=== PATIENT | male | born 1955 | race Caucasian/White ===

== ENCOUNTER 2024-02-26 09:39 | Outpatient (AMB) | payer OTHER, SELFPAY ==
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
[2024-02-26 10:07] VITALS: BP 130/78; PULSE 72; RESP 16; TEMP 36.6; O2SAT 98; BMI 29.1
== END 2024-02-26 11:09 | disposition home or self-care (01) ==
PROVIDERS: PCP Family Medicine; Visit Provider Family Medicine
DX: R35.0 Frequency of micturition (principal); F17.210 Nicotine dependence, cigarettes, uncomplicated; Z12.11 Encounter for screening for malignant neoplasm of colon; Z86.010 Personal history of colon polyps; M79.604 Pain in right leg; R29.898 Other symptoms and signs involving the musculoskeletal system
CPT/HCPCS: 99203

== ENCOUNTER 2024-03-29 08:08 | Outpatient (REF) | payer OTHER, SELFPAY ==
[2024-03-29 11:14] LABS: MANUAL DIFF FLAG NO
[2024-03-29 11:33] LABS: Basophils Absolute Auto 0.1 X10*3/uL (0.0-0.2); Basophils Percent Auto 1.3 % (0-2); Eosinophils Absolute Auto 0.2 X10*3/uL (0.0-0.4); Eosinophils Percent Auto 3.3 % (0-4); Hematocrit 42.3 % (42.0-52.0); Imm Gran Abs Auto 0.02 X10*3/uL (0.00-0.03); Imm Gran Pct Auto 0.3 % (0.0-0.4); Lymphocytes Absolute Auto 2.2 X10*3/uL (1.2-4.9); Lymphocytes Percent Auto 35.1 % (20-40); Mean Corpuscular HGB Conc 33.1 g/dl (31.0-36.0); Mean Corpuscular Hemoglobin 31.7 pg (27.0-33.0); Mean Corpuscular Volume 95.7 fL (80.0-98.0); Monocytes Absolute Auto 0.4 X10*3/uL (0.1-1.2); Neutrophils Absolute Auto 3.4 x10*3/uL (2.0-8.3); Platelet Count 221 X10*3/uL (160-400); Red Blood Count 4.42 X10*6/uL (4.60-5.80); Red Cell Distribution Width 13.1 % (11.0-16.0); White Blood Count 6.4 X10*3/uL (4.8-10.8)
[2024-03-29 12:03] LABS: Alanine Aminotransferase 23 U/L (0-40); Alkaline Phosphatase 63 U/L (39-117); Anion Gap 10 (12-20); Aspartate Amino Transferase 27 U/L (5-37); Bilirubin Total 0.7 mg/dL (0.0-1.0); Blood Urea Nitrogen 14 mg/dL (9-16); Carbon Dioxide 27 mmol/L (22-29); Chloride 108 mmol/L (96-108); Cholesterol 181 mg/dL (<200); Estimated Glomerular Filt Rate > 60; Glucose Fasting 96 mg/dL (60-99); HDL Cholesterol 35 mg/dL (>40); LDL Cholesterol Calculated 111 mg/dL (<100); Potassium 4.3 mmol/L (3.3-5.1); Sodium 141 mmol/L (135-145); Total Protein 6.5 g/dL (6.5-8.0); Triglycerides 178 mg/dL (<150)
[2024-03-29 12:14] LABS: Prostate Specific Antigen Scr 2.25 ng/mL (<0.05-4.0)
[2024-03-29 12:22] LABS: TSH reflex Free T4 0.75 uIU/mL (0.32-4.0)
[2024-03-29 14:24] LABS: Appearance Urine Clear; Color Urine Yellow; Glucose Urine UA Negative (Negative); Leukocyte Esterase Urine Negative (Negative); Nitrite Urine Negative (Negative); Specific Gravity - Urine >= 1.030 (1.005-1.025); Urine Blood Negative (Negative); Urine Ketones Negative (Negative); Urine Protein Trace mg/dL (Neg-Trace)
[2024-03-29 14:57] LABS: Creatinine Urine 192.71 mg/dL; Microalbum/Creatinine Ratio Ur 6.7 ug/mg cr (<30)
== END 2024-03-29 08:09 | disposition home or self-care (01) ==
LOC: HO.WFDLDS 08:08
PROVIDERS: Visit Provider Family Medicine
DX: Z00.00 Encounter for general adult medical examination without abnormal findings (principal); Z12.5 Encounter for screening for malignant neoplasm of prostate; I10 Essential (primary) hypertension
CPT/HCPCS: 36415; 80053; 80061; 81003; 82043; 82570; 84153; 84443; 85025

== ENCOUNTER → 2024-05-23 15:57 | Outpatient (BNVA) | payer OTHER, SELFPAY | PROVIDERS: PCP Family Medicine; Visit Provider Family Medicine | DX: R03.0 Elevated blood-pressure reading, without diagnosis of hypertension (principal); R29.898 Other symptoms and signs involving the musculoskeletal system; R39.14 Feeling of incomplete bladder emptying | CPT/HCPCS: 96127; 99212 ==

== ENCOUNTER → 2024-05-23 15:57 | Outpatient (AMB) | payer OTHER, SELFPAY ==
--- NOTE | 2024-05-23 16:06 | A.OFFPC_ITS ---
Vital Signs 05/23/24 16:35 Height 5 ft 8.11 in Weight 193 lb 4 oz BMI 29.3 BP 142/70 H Blood Pressure Location Rt brachial Position Sitting Respiration 16 Pulse 69 Pulse Source Pulse Oximeter Temp 97.7 F Temp Source Temporal Artery Scan Pulse Oximetry (%) 97 Oxygen Delivery Method Room Air Intake Visit Reasons: 2 months for CPE with follow-up labs Allergies acetaminophen [From Tylenol-Codeine #3] Allergy (Severe, Verified 02/26/24 10:02) Anaphylaxis codeine [From Tylenol-Codeine #3] Allergy (Severe, Verified 02/26/24 10:02) Anaphylaxis Codeine Sulfate Allergy (Unknown, Uncoded 08/22/17 00:00) tongue swelling Medication List - Last Reconciled 05/23/24 by Drew Guzman MD acetaminophen (Tylenol Extra Strength) 1,000 mg PO QID PRN alfuzosin ER 10 mg PO DAILY 30 days ibuprofen 400 mg PO Q8H Tobacco use date assessed: 02/26/24 Dental Screening Dental Screen Date: 02/26/24 HPI 2 months for CPE with follow-up labs HPI Details 69 y/o male presents for a CPE with f/u labs and health maintenance. Labs drawn 04/01/24. Reviewed labs with pt. Triglycerides 178. TC 181. LDL 111. HDL low at 35. PSA 2.25. TSH 0.75. Blood pressure today 142/70, 69p. Notes he had seen Neurology for R fott weakness/intermittent RLE pain. Per note, probable lumbar spinal stenosis, worse on R involving L4-L5 roots on R and bilateral S1 roots. Notes he has an appt. with pain management in May. Notes last colonoscopy around 2017. He has an appt. June with GI. Reports difficulty emptying. [facility] Social History (Updated 02/26/24 @ 09:59 by Deanne Angel [facility]) Housing: House Patient Tobacco Use Status: Current everyday Tobacco user Tobacco use type: Cigarette Cigarette Packs Per Day: 1 Years Smoked: 23 e-Cigarette/Vaping Use: Never Used Second Hand Smoke Exposure: No service: No Current occupational status: disabled Current occupational exposures/hazards: No Cognitive needs: No Hearing needs: No Vision needs: Yes Questionnaire PHQ-9 Over the last 2 weeks, how often have you been bothered by any of the following problems? 1. Little interest or pleasure in doing things: not at all 2. Feeling down, depressed, or hopeless: not at all 3. Trouble falling or staying asleep, or sleeping too much: not at all 4. Feeling tired or having little energy: not at all 5. Poor appetite or overeating: not at all 6. Feeling bad about yourself - or that you are a failure or have let yourself or your family down: not at all 7. Trouble concentrating on things, such as reading the newspaper or watching television: not at all 8. Moving or speaking so slowly that other people could have noticed. Or the opposite - being so fidgety or restless that you have been moving around a lot more than usual: not at all 9. Thoughts that you would be better off or of hurting yourself in some way: not at all Total score: 0 Depression Screening Interpretation: Negative Depression Screening Done: Yes 13551 - PHQ-9 Billing: Yes Source: Developed by Drs. Salbador Haley, Irene Ronquillo, Chavo Rod and colleagues, with an educational riya from [employer]. Thrive Questionnaire Date Thrive assessed: 05/23/24 I am a: Patient What is your living situation today?: I have a steady place to live Within the past 12 months, did the food you bought not last and you didn't have the money to get more?: Never true Within the past 12 months, did you worry whether your food would run out before you got money to buy more?: Never true Do you have trouble paying for medicines?: No Do you have trouble getting transportation to medical appointments?: No Do you have trouble paying your heating and electricity bill?: No Do you have trouble taking care of your child, family member or friend?: No Do you have trouble with day-to-day activities such as bathing, preparing meals, shopping, managing finances, etc.?: No Are you currently unemployed and looking for a job?: No Are you interested in more education?: No Please select the resources that you would like help with: None Currently or been in a relationship where the following occur: No concerns reported THRIVE Score: 0 AUDIT C Alcohol Use Questionnaire (AUDIT-C) 1. How often do you have a drink containing alcohol?: Monthly or less 2. How many drinks containing alcohol do you have on a typical day when you are drinking?: 1 or 2 3. How often do you have six or more drinks on one occasion?: Never Total Score: 1 KINA-7 AMB Questionnaire KINA-7 Date KINA - 7 assessed: 05/23/24 Feeling nervous, anxious, or on edge: 0 = Not at all Not being able to stop or control worryin = Not at all Worrying too much about different things: 0 = Not at all Trouble relaxin = Not at all Being so restless that it is hard to sit still: 0 = Not at all Becoming easily annoyed or irritable: 0 = Not at all Feeling afraid as if something awful might happen: 0 = Not at all Total KINA-7 score (0-4 normal; 5-9 mild; 10-14 moderate; 15-21 severe): 0 Source: Developed by Drs. Salbador Haley, Irene Ronquillo, Chavo Rod and colleagues, with an educational riya from [employer]. KINA-7 Assessment Billing KINA-7 Assessment Tool: KINA-7 Assessment 69238 Review of Systems Const Denies chills, Denies fatigue, Denies fever(s), Denies headache(s) and Denies weakness Eyes Denies change in vision ENT Denies dizziness, Denies headache(s), Denies hearing loss, Denies nasal congestion, Denies sinus pain, Denies sinus pressure and Denies sore throat Card Denies chest pain, Denies lightheadedness, Denies dyspnea and Denies other (palpitations) Resp Denies cough, Denies dyspnea and Denies wheezing GI Denies abdominal pain, Denies melena, Denies hematochezia, Denies change in bowel habits, Denies dyspepsia and Denies nausea Denies hematuria and Denies dysuria Musc Denies abnormal gait, Denies myalgias, Denies arthralgias, Denies numbness and Denies tingling Skin/Breast Denies rash, Denies unusual bruising and Denies wounds Neuro Denies abnormal gait, Denies dizziness, Denies headache(s), Denies memory loss, Denies numbness, Denies Sensory deficit (Neuro), Denies tingling and Denies weakness Psych Denies anxiety, Denies depression and Denies memory loss Endo Denies cold intolerance, Denies fatigue, Denies heat intolerance, Denies polydipsia and Denies polyuria Surendra/Lymph Denies easy bleeding and Denies easy bruising Aller/Immun Denies wheezing Physical exam (Primary Care) Vital Signs: Last Vital Signs Temp 97.7 F 05/23/24 16:35 Pulse 69 05/23/24 16:35 Resp 16 05/23/24 16:35 BP 142/70 H 05/23/24 16:35 Pulse Ox 97 05/23/24 16:35 Oxygen Delivery Method Room Air 05/23/24 16:35 BMI result Body Mass Index 29.3 Tobacco/Smoking Status: Tobacco use Status Tobacco use date assessed 02/26/24 05/23/24 16:07 Patient Tobacco Use Status Current everyday Tobacco 05/23/24 16:07 Tobacco use type Cigarette 05/23/24 16:07 e-Cigarette/Vaping Use Never Used 05/23/24 16:07 PHQ-9: PHQ-9 Score PHQ-9: Total score 0 05/23/24 16:44 Depression Screening Interpretation: Negative Thrive Assessment: Date of Thrive Assessment Date Thrive assessed 05/23/24 05/23/24 16:37 Currently or been in a relationship where the following occur: No concerns reported Const General: no acute distress, well developed, alert and awake Nutritional Appearance: well nourished Orientation/consciousness: patient oriented x3 HENMT Head: Yes normocephalic and Yes atraumatic Ears: hearing grossly normal bilaterally and TM's normal bilaterally General nose exam: Normal external nose present and Normal nares present Mouth: Normal oral and palatal mucosa present and moist mucous membranes Teeth and gingiva: dentition normal Throat: Yes posterior oropharynx normal Eyes General: appearance normal, both eyes and all related structures Pupils: Equal, round and reactive pupils present and Pupil accommodation reflex normal EOM: EOMs intact bilaterally Neck Neck: Yes normal visual inspection, Yes no lymphadenopathy and Yes trachea midline Thyroid: Thyroid normal Carotids: no bruits Lymphatic: no lymphadenopathy noted Chest Chest palpation & inspection: normal inspection of the chest Resp Effort & Inspection: normal respiratory effort Auscultation: clear to auscultation bilaterally Cardio Rate: regular rate Rhythm: regular rhythm Heart sounds: S1 normal heart sound present, S2 normal heart sound present, no gallops, no murmurs and no rubs Bruits: no abdominal aortic bruits and no carotid bruits GI Palpation (GI): No Abdominal aortic bruit present, Soft to palpation, nontender, No hepatosplenomegaly present and No Rebound tenderness present Auscultation: normal bowel sounds General: Yes no CVA tenderness Back/Spine/Pelvis Back: no CVA tenderness Cervical Spine: cervical ROM normal and No Cervical spine tenderness Thoracic/Lumbar Spine: thoraco-lumbar ROM normal, No pain with thoraco-lumbar ROM, No thoracic spinal tenderness and No lumbar spinal tenderness Skin Lesions: no lesions Rashes: no rashes Trauma: no lacerations or abrasions Wounds: no wounds Nails: normal Neuro General: patient oriented x3 Cranial nerves: Yes Equal, round and reactive pupils present Cognition (Neuro): normal cognition Gait exam (Neuro): Normal gait present Motor exam (neuro): 5/5 motor strength present throughout Sensory Exam: No Sensory deficit (Neuro) Deep tendon reflexes (DTR's): Right patellar reflex intensity grade: 2+ and Left patellar reflex intensity grade: 2+ Extrem General: Yes normal to inspection and No edema Psych Appearance: grossly normal Affect: normal affect Attitude: cooperative Thought process: Normal thought process present Coding Level of Care Code Est Pt Level 3 (80893) Diagnoses Adult general medical exam Z00.00 Elevated blood pressure reading R03.0 Right leg weakness R29.898 Screening for colon cancer Z12.11 Feeling of incomplete bladder emptying R39.14 Screening for prostate cancer Z12.5 Additional Codes KINA-7 Assessment Billing - KINA-7 Assessment Tool: KINA-7 Assessment 48660 ([id number]) Assessment & Plan Assessment & Plan (1) Adult general medical exam: Code(s): Z00.00 - Encounter for general adult medical examination without abnormal findings Category: Medical Plan: 69-year-old?male?presents?for?complete?physical?exam (2) Elevated blood pressure reading: Code(s): R03.0 - Elevated blood-pressure reading, without diagnosis of hypertension Category: Medical Plan: Encouraged?a?diet?low?in?salt/sodium Will?follow-up?on?this?at?his?next?visit (3) Right leg weakness: Code(s): R29.898 - Other symptoms and signs involving the musculoskeletal system Category: Medical Plan: ongoing right lower?extremity?weakness?with?lumbar?radiculopathy Mild?unsteady?gait He?has?seen?neurology?and?been?referred?to?pain?management He?has?a?follow-up?with?Neurology (4) Screening for colon cancer: Code(s): Z12.11 - Encounter for screening for malignant neoplasm of colon Category: Medical Plan: History?of?colon?polyp?and?I?referred?him?to?GI He?has?an?appointment?in?June (5) Feeling of incomplete bladder emptying: Code(s): R39.14 - Feeling of incomplete bladder emptying Category: Medical Plan: Patient?is?using?Alfuzosin which?is?helping?with?bladder?emptying?but?still?having?some?difficulty?and?feel s?like?it?is?no?longer?as?effective Referring?him?to?urology (6) Screening for prostate cancer: Code(s): Z12.5 - Encounter for screening for malignant neoplasm of prostate Category: Medical Plan: PSA?2.25?but?patient?notes?some?ongoing?difficulty?with?voiding As?above,?referred?to?Urology Orders: Referrals Urology Referral R39.14 - Feeling of incomplete bladder emptying
[2024-05-23 16:35] VITALS: BP 142/70; PULSE 69; RESP 16; TEMP 36.5; O2SAT 97; BMI 29.3
== END ==
LOC: HO.HMCFM 15:58
PROVIDERS: PCP Family Medicine; Visit Provider Family Medicine
DX: Z00.00 Encounter for general adult medical examination without abnormal findings (principal); R03.0 Elevated blood-pressure reading, without diagnosis of hypertension; R29.898 Other symptoms and signs involving the musculoskeletal system; Z12.11 Encounter for screening for malignant neoplasm of colon; R39.14 Feeling of incomplete bladder emptying; Z12.5 Encounter for screening for malignant neoplasm of prostate

== ENCOUNTER 2024-06-06 09:19 | Outpatient (AMB) | payer OTHER, SELFPAY ==
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
[2024-06-06 09:39] VITALS: BP 140/80; PULSE 74; RESP 16; O2SAT 96; BMI 29.6
== END 2024-06-06 10:09 | disposition home or self-care (01) ==
PROVIDERS: PCP Family Medicine; Visit Provider Anesthesiology
DX: M48.00 Spinal stenosis, site unspecified (principal); M47.816 Spondylosis without myelopathy or radiculopathy, lumbar region; M51.369 Other intervertebral disc degeneration, lumbar region without mention of lumbar back pain or lower extremity pain; M70.61 Trochanteric bursitis, right hip; G89.4 Chronic pain syndrome
CPT/HCPCS: 20610; 99204

== ENCOUNTER → 2024-06-06 09:19 | Outpatient (BNVA) | payer OTHER, SELFPAY | PROVIDERS: PCP Family Medicine; Visit Provider Anesthesiology | DX: M70.61 Trochanteric bursitis, right hip (principal); M48.00 Spinal stenosis, site unspecified; M47.816 Spondylosis without myelopathy or radiculopathy, lumbar region; M51.369 Other intervertebral disc degeneration, lumbar region without mention of lumbar back pain or lower extremity pain; G89.4 Chronic pain syndrome | CPT/HCPCS: 20610; 99202; J0665; J3301 ==

== ENCOUNTER 2024-06-19 10:46 | Outpatient (AMB) | payer OTHER, SELFPAY ==
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
[2024-06-19 10:53] VITALS: BP 148/78; PULSE 98; RESP 16; O2SAT 98; BMI 29.6
== END 2024-06-19 11:24 | disposition home or self-care (01) ==
PROVIDERS: PCP Family Medicine; Visit Provider Anesthesiology
DX: M48.00 Spinal stenosis, site unspecified (principal); M47.816 Spondylosis without myelopathy or radiculopathy, lumbar region; M51.369 Other intervertebral disc degeneration, lumbar region without mention of lumbar back pain or lower extremity pain; M70.61 Trochanteric bursitis, right hip; G89.4 Chronic pain syndrome
CPT/HCPCS: 99213

== ENCOUNTER → 2024-06-19 10:46 | Outpatient (BNVA) | payer OTHER, SELFPAY | PROVIDERS: PCP Family Medicine; Visit Provider Anesthesiology | DX: M48.00 Spinal stenosis, site unspecified (principal); M47.816 Spondylosis without myelopathy or radiculopathy, lumbar region; M51.369 Other intervertebral disc degeneration, lumbar region without mention of lumbar back pain or lower extremity pain; M70.61 Trochanteric bursitis, right hip; G89.4 Chronic pain syndrome | CPT/HCPCS: 99212 ==

== ENCOUNTER 2024-07-12 11:52 | Outpatient (AMB) | payer OTHER, SELFPAY ==
--- NOTE | 2024-07-12 12:05 | MHC.OFFVIS ---
Vital Signs 07/12/24 12:12 Height 5 ft 8.11 in Weight 192 lb 3.889 oz BMI 29.1 BP 130/62 Blood Pressure Location Lt brachial Position Sitting Pulse 88 Intake Visit Reasons: [place] consult. Intake Note: Patient in office as a new patient for colonoscopy consult. CC: Patient denies having any GI symptoms today. Verification Lead Required: No Accompanied by: Self / Same As Patient Allergies acetaminophen [From Tylenol-Codeine #3] Allergy (Severe, Verified 07/12/24 12:15) Anaphylaxis codeine [From Tylenol-Codeine #3] Allergy (Severe, Verified 07/12/24 12:15) Anaphylaxis Codeine Sulfate Allergy (Unknown, Uncoded 08/22/17 00:00) tongue swelling HPI HPI [place] consult.: Details: 69-year-old male here for preprocedural meeting to discuss a screening colonoscopy. He is referred by Drew Guzman. PMX Smoker Spinal stenosis/spondylosis Chronic pain syndrome Foot drop Urinary hesitancy * SURGICAL HISTORY Rt leg surgery/muscle repair Tonsillectomy Rt hand ring finger tendon repair * ALLERGIES Codeine * [employer] LABS: Laboratory Tests 03/29/24 03/29/24 08:10 08:16 WBC 6.4 Hgb 14.0 Hct 42.3 Plt Count 221 Estimated GFR > 60 Total Bilirubin 0.7 AST 27 ALT 23 Alkaline Phosphatase 63 TSH 0.75 TODAY'S VISIT His last scope was in 2018 and he had 2 polyps - this was probably at [facility]. NO bowel or upper GI problems. He denies any cardiac or respiratory problems. NO prior problems with anesthesia or sedation. No ID problems. He had 2 polys removed as above. [facility] Medical History Right leg weakness Right leg pain Right hip pain Laboratory exam ordered as part of routine general medical examination Screening for colon cancer Screening for prostate cancer Adult general medical exam Surgical History H/O colonoscopy History of tonsillectomy Family History Father Stomach cancer Social History Housing: House Alcohol intake: current Alcohol intake frequency: other Alcohol type: beer Comment: about 4 beers per year. Patient Tobacco Use Status: Current everyday Tobacco user Tobacco use type: Cigarette Cigarette Packs Per Day: 1 Years Smoked: 23 e-Cigarette/Vaping Use: Never Used Second Hand Smoke Exposure: No service: No Current occupational status: disabled Current occupational exposures/hazards: No Cognitive needs: No Hearing needs: No Vision needs: Yes Review of Systems Const Denies fatigue, Denies fever(s), Denies night sweats, Denies poor appetite and Denies weight loss Eyes Details: glasses Reports requires corrective lenses ENT Reports Normal hearing present, Denies dental pain, Denies dysphagia, Denies hearing loss, Denies mouth pain, Denies odynophagia, Denies throat swelling, Denies tongue swelling and Reports other (Dentition adequate) Card Reports no additional complaints Resp Reports no additional complaints GI Details: Denies abdominal pain, Denies melena, Denies bloating, Denies hematochezia, Denies constipation, Denies GI cramping, Denies dysphagia, Denies excessive flatus, Denies early satiety, Denies heartburn, Denies diarrhea, Denies nausea, Denies odynophagia, Denies vomiting and Denies hematemesis Skin/Breast Denies pruritus, Denies lesions, Denies rash and Denies jaundice Neuro Reports Normal hearing present and Denies Abnormal speech present Endo Denies fatigue Aller/Immun Denies throat swelling and Denies tongue swelling Physical Exam Vital Signs: Last Vital Signs Pulse 88 07/12/24 12:12 BP 130/62 07/12/24 12:12 BMI result Body Mass Index 29.1 Const General: cooperative, no acute distress, well developed and well groomed Nutritional Appearance: average body habitus and well nourished Orientation/consciousness: oriented to person, oriented to place and oriented to time Limitations: No language barrier HEENT Head: Yes normocephalic and Yes atraumatic Eyes General: appearance normal, both eyes and all related structures Pupils: Equal, round and reactive pupils present Neck Neck: Yes normal visual inspection and Yes no lymphadenopathy Thyroid: Thyroid normal Resp Effort & Inspection: normal respiratory effort and able to speak in complete sentences Auscultation: clear to auscultation bilaterally Cardio Rate: regular rate Rhythm: regular rhythm Heart sounds: Normal, physiologic split S2 sound present Peripheral pulses: radial pulses present and posterior tibial pulses present GI Inspection: No distended, No Abdominal panniculus present and Yes obesity Palpation (GI): Soft to palpation, nontender, no guarding, not rigid and No hepatosplenomegaly present Percussion: Yes normal to percussion Auscultation: normal bowel sounds Rectal Exam - Male: Yes deferred Skin General skin exam: no rashes or lesions noted, turgor normal, skin not dry, no jaundice, No spider nevi and no striae Rashes: no rashes Nails: normal Neuro General: oriented to person, oriented to place and oriented to time Cranial nerves: Yes Equal, round and reactive pupils present and Yes Normal hearing present Speech: No Abnormal speech present Extrem General: Yes normal to inspection, No clubbing, No cyanosis and No edema Psych Appearance: grossly normal and well kempt Mental Status: mental status grossly normal Speech and movement: Normal speech and movement present Affect: normal affect Attitude: cooperative Thought process: Normal thought process present and not confabulating Thought content: Normal thought content present Insight: Fair insight present (Psych) Judgement: Fair judgement present (Psych) Assessment & Plan Assessment & Plan (1) Smoker: Code(s): F17.200 - Nicotine dependence, unspecified, uncomplicated Category: Social Hx (2) Pre-op examination: Code(s): Z01.818 - Encounter for other preprocedural examination Category: Medical Plan His last scope was in 2018 and he had 2 polyps - this was probably at [facility]. NO bowel or upper GI problems. He denies any cardiac or respiratory problems. NO prior problems with anesthesia or sedation. No ID problems. He had 2 polys removed as above. Orders: Orders Colonoscopy - GI Use Only Today F17.200 - Nicotine dependence, unspecified, uncomplicated, Z01.818 - Encounter for other preprocedural examination Medications: New sodium,potassium,mag sulfates 17.5-3.13-1.6 gram (Suprep Bowel Prep Kit) 480 mL orally; FOR COLONOSCOPY PREP 354 mL 0RF Coding Level of Care Code New Pt Level 3 (46378) Diagnoses Smoker F17.200 Pre-op examination Z01.818
[2024-07-12 12:12] VITALS: BP 130/62; PULSE 88; BMI 29.1
== END 2024-07-12 12:38 | disposition home or self-care (01) ==
PROVIDERS: PCP Family Medicine; Visit Provider Nurse Practitioner
DX: Z01.818 Encounter for other preprocedural examination (principal); Z12.11 Encounter for screening for malignant neoplasm of colon; Z86.0100 Personal history of colon polyps, unspecified; F17.210 Nicotine dependence, cigarettes, uncomplicated
CPT/HCPCS: 99024

== ENCOUNTER → 2024-07-12 11:52 | Outpatient (BNVA) | payer OTHER, SELFPAY | PROVIDERS: PCP Family Medicine; Visit Provider Nurse Practitioner | DX: Z01.818 Encounter for other preprocedural examination (principal); F17.210 Nicotine dependence, cigarettes, uncomplicated | CPT/HCPCS: 99212 ==

== ENCOUNTER 2024-07-29 08:42 | Outpatient (AMB) | payer MEDICARE, SELFPAY ==
--- NOTE | 2024-07-29 08:45 | MHC.OFFVIS ---
Intake Visit Reasons: incomplete bladder emptying Intake Note: New patient Presents for Urinary Frequency/Incomplete Emptying Any Urology Medication: PCP ordered Alfuzosin Antibiotic Allergies:None Blood Thinners: None PVR: 237ml Patient states he was prescribed Alfuzosin by his PCP for his Urinary Frequency and Incomplete Emptying, Patient states that Alfuzsoin has little effect he gets up numerous times during the night to urinate and feels that he does not empty his bladder enough. Any Family History (Urological): Bladder Cancer? Prostate Cancer? Kidney Disease? Kidney Stones? 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 Imaging Required: No Accompanied by: Self / Same As Patient Allergies acetaminophen [From Tylenol-Codeine #3] Allergy (Severe, Verified 07/29/24 08:53) Anaphylaxis codeine [From Tylenol-Codeine #3] Allergy (Severe, Verified 07/29/24 08:53) Anaphylaxis Codeine Sulfate Allergy (Unknown, Uncoded 07/29/24 08:53) tongue swelling Medication List - Last Reconciled 07/29/24 by Juarez Medrano MD acetaminophen (Tylenol Extra Strength) 1,000 mg PO QID PRN ibuprofen 400 mg PO Q8H PRN sodium,potassium,mag sulfates 17.5-3.13-1.6 gram (Suprep Bowel Prep Kit) 480 mL orally; FOR COLONOSCOPY PREP tamsulosin (Flomax) 0.4 mg PO BEDTIME HPI Comments Details: Drew is a 69-year-old gentleman who states that he feels that he is not emptying his bladder well. Patient states he was prescribed Alfuzosin by his PCP for his Urinary Frequency and Incomplete Emptying, Patient states that Alfuzsoin has little effect he gets up numerous times during the night to urinate and feels that he does not empty his bladder enough. AUA symptom score 30/35. The patient states he has had progression of symptoms over the last 5 years he has been on the alfuzosin for about 4 months. I have discussed a trial of tamsulosin 0.4 mg in the evening which we can increase to b.i.d. pending symptom improvement. Discussed alternative treatment options include therapies to resect or laser prostate. We will check renal and bladder ultrasound. Follow-up in 3 months. Bladder scan PVR today is 237 mL. Urinalysis negative blood leukocytes trace. Review of chart-labs PSA-03/29/2024 equals 2.25 mg/dL. PFSH Medical History Right leg weakness Right leg pain Right hip pain Laboratory exam ordered as part of routine general medical examination Screening for colon cancer Screening for prostate cancer Adult general medical exam Surgical History H/O colonoscopy History of tonsillectomy Family History Father Stomach cancer Social History Housing: House Alcohol intake: current Alcohol intake frequency: other Alcohol type: beer Comment: about 4 beers per year. Patient Tobacco Use Status: Current everyday Tobacco user Tobacco use type: Cigarette Cigarette Packs Per Day: 1 Years Smoked: 23 e-Cigarette/Vaping Use: Never Used Second Hand Smoke Exposure: No service: No Current occupational status: disabled Current occupational exposures/hazards: No Cognitive needs: No Hearing needs: No Vision needs: Yes Review of Systems Const All systems reviewed & are unremarkable except as noted in HPI and below Reports no additional complaints Eyes Reports no additional complaints ENT Reports no additional complaints Card Reports no additional complaints Resp Reports no additional complaints GI Reports no additional complaints Reports as per HPI Musc Reports no additional complaints Skin/Breast Reports system reviewed and no additional complaints, except as documented Neuro Reports no additional complaints Psych Reports no additional complaints Endo Reports no additional complaints Surendra/Lymph Reports no additional complaints Aller/Immun Reports no additional complaints Physical Exam Const General: healthy appearing, no acute distress and well developed Orientation/consciousness: patient oriented x3 HEENT Head: Yes normocephalic and Yes atraumatic Eyes Conjunctivae: conjunctivae normal Neck Neck: Yes normal visual inspection Chest Chest palpation & inspection: normal inspection of the chest Resp Effort & Inspection: normal respiratory effort Cardio Rate: regular rate GI Inspection: Yes normal to inspection Palpation (GI): Soft to palpation Neuro General: patient oriented x3 Psych Appearance: grossly normal Affect: normal affect Office Procedures Post Void Residual Post Residual Void Post Void Residual (PVR): 237 [id number] Void Residual by ultrasound Results AMB Urinalysis, Automated UA Leukoctes 15 [place]/uL Last Edit by NINA Garcia on 07/29/24 09:02 UA Nitrite Negative Last Edit by Fifi Machado, RMA on 07/29/24 09:02 UA Urobilinogen 0.2 mg/dL Last Edit by Fifi Machado, RMA on 07/29/24 09:02 UA Protein 0 mg/dL Last Edit by Fifi Machado, RMA on 07/29/24 09:02 UA pH 6.0 Last Edit by Fifi Machado, RMA on 07/29/24 09:02 UA Blood 0 [place]/uL Last Edit by Fifi Machado, RMA on 07/29/24 09:02 UA Specific [place] 1.015 Last Edit by Fifi Machado, RMA on 07/29/24 09:02 UA Ketone Negative Last Edit by Fifi Machado, RMA on 07/29/24 09:02 UA Bilirubin 0 mg/dL Last Edit by Fifi Machado, RMA on 07/29/24 09:02 UA Glucose 0 mg/dL Last Edit by Fifi Machado, RMA on 07/29/24 09:02 Quality Reporting (2019) Benign Prostatic Hyperplasia ([facility] 771) AUA symptom score: 30 Quality of life due to urinary symptoms: If you were to spend the rest of your life with your urinary condition the way it is now, how would you feel about that?: Mostly dissatisfied Results Reviewed Results Reviewed: Laboratory Last Values Urine pH (Auto) 6.0 07/29/24 09:00 Specific [place] (Auto) 1.015 07/29/24 09:00 Urine Protein (Auto) 0 mg/dL 07/29/24 09:00 Glucose (UA)(Auto) 0 mg/dL 07/29/24 09:00 Urine Ketones (Auto) Negative 07/29/24 09:00 Urine Blood (Auto) 0 [place]/uL 07/29/24 09:00 Urine Nitrite (Auto) Negative 07/29/24 09:00 Urine Bilirubin (Auto) 0 mg/dL 07/29/24 09:00 Urine Urobilinogen (Auto) 0.2 mg/dL 07/29/24 09:00 Leukocyte Esterase (Auto) 15 [place]/uL 07/29/24 09:00 Assessment & Plan Assessment & Plan (1) BPH loc w urin obs/LUTS: Code(s): N40.1 - Benign prostatic hyperplasia with lower urinary tract symptoms Category: Medical (2) Incomplete bladder emptying: Code(s): R33.9 - Retention of urine, unspecified Category: Medical Plan I have discussed a trial of tamsulosin 0.4 mg in the evening which we can increase to b.i.d. pending symptom improvement. Will check renal and bladder ultrasound. Orders: Orders AMB Urinalysis Automated Today Z13.9 - Encounter for screening, unspecified AMB Post Void Residual by ultrasound Today R39.14 - Feeling of incomplete bladder emptying US retroperitoneal comp Today N40.1 - Benign prostatic hyperplasia with lower urinary tract symptoms, R33.9 - Retention of urine, unspecified Medications: New tamsulosin (Flomax) 0.4 mg PO BEDTIME 90 caps 1RF enlarged prostate Discontinued alfuzosin ER administer after the same meal each day Discontinued Reason: Doctor's Order 10 mg PO DAILY 30 days 30 tabs 1RF Patient Instructions: The patient had an opportunity to ask questions regarding treatment plan. The patient expressed understanding and agreement with the above treatment plan. The patient is aware they should contact our office by phone for worsening of their current condition or the appearance of new symptoms. Compliance is encouraged with any medications and followup testing that is ordered. It is a privilege to be allowed the opportunity to participate in the urologic care of your patient. If you have any questions or concerns regarding treatment for the above conditions please do not hesitate to contact me. The office telephone contact is [phone]. This note is constructed in part using voice recognition software. While every effort has been made to ensure accuracy acid bath mixer errors may have been included. Yours sincerely, Juarez Medrano MD Coding Level of Care Code New Pt Level 4 (03826) Diagnoses BPH loc w urin obs/LUTS N40.1 Incomplete bladder emptying R33.9 CPT Codes Post Residual Void - PVR CPT Code: 92327-Uala Void Residual by ultrasound ([id number]) AUA Symptom Score AUA Incomplete emptying - It does not feel like I empty my bladder all the way.: 5 - Almost always Frequency - I have to go again less than two hours after I finish urinating.: 5 - Almost always Intermittency - I stop and start again several times when I urinate.: 4 - More than half the time Urgency - It is hard to wait when I have to urinate.: 5 - Almost always Weak stream - I have a weak urinary stream.: 5 - Almost always Straining - I have to push or strain to begin urination.: 4 - More than half the time Nocturia - I get up to urinate after I go to bed until the time I get up in the morning.: 2 times AUA Symptom Score: 30 Quality of life due to urinary symptoms: If you were to spend the rest of your life with your urinary condition the way it is now, how would you feel about that?: Mostly dissatisfied Source: Kai BORGES, Dain PARSON Jr, O'Waverly MP, et al, and the Measurement Committee of the [employer]. The [employer] symptom index for benign prostatic hyperplasia. J Urol. 1992; 148: 0312-4853. Copyright 1992 [employer]
== END 2024-07-29 09:42 | disposition home or self-care (01) ==
PROVIDERS: PCP Family Medicine; Visit Provider Urology
DX: N40.1 Benign prostatic hyperplasia with lower urinary tract symptoms (principal); R33.9 Retention of urine, unspecified; Z13.9 Encounter for screening, unspecified
CPT/HCPCS: 99204

== ENCOUNTER → 2024-07-29 08:42 | Outpatient (BNVA) | payer OTHER, SELFPAY | PROVIDERS: PCP Family Medicine; Visit Provider Urology | DX: N40.1 Benign prostatic hyperplasia with lower urinary tract symptoms (principal); R33.9 Retention of urine, unspecified | CPT/HCPCS: 51798; 81003; 99202 ==

== ENCOUNTER 2024-09-03 11:11 | Outpatient (AMB) | payer MEDICARE, SELFPAY ==
--- NOTE | 2024-09-03 11:22 | MHC.PC.OV ---
Vital Signs 09/03/24 11:28 Height 5 ft 8.11 in Weight 195 lb 6 oz BMI 29.6 BP 128/60 Blood Pressure Location Lt brachial Position Sitting Respiration 14 Pulse 84 Pulse Source Pulse Oximeter Temp 98.6 F Temp Source Oral Pulse Oximetry (%) 96 Oxygen Delivery Method Room Air Intake Visit Reasons: f/u elevated BP, chronic conditions Intake Note: f/u b/p Allergies acetaminophen [From Tylenol-Codeine #3] Allergy (Severe, Verified 09/03/24 11:25) Anaphylaxis codeine [From Tylenol-Codeine #3] Allergy (Severe, Verified 09/03/24 11:25) Anaphylaxis Codeine Sulfate Allergy (Unknown, Uncoded 07/29/24 08:53) tongue swelling Medication List - Last Reconciled 09/03/24 by Drew Guzman MD acetaminophen (Tylenol Extra Strength) 1,000 mg PO QID PRN ibuprofen 400 mg PO Q8H PRN sodium,potassium,mag sulfates 17.5-3.13-1.6 gram (Suprep Bowel Prep Kit) 480 mL orally; FOR COLONOSCOPY PREP tamsulosin (Flomax) 0.4 mg PO BEDTIME Tobacco use date assessed: 02/26/24 Dental Screening Dental Screen Date: 02/26/24 HPI f/u elevated BP, chronic conditions HPI Details 69 y/o male presents to f/u elevated bablood pressures, chronic conditions. Followed by neurology for lumbar radiculopathy and right lower extremity weakness Hx of elevated blood pressures. BP today 128/60, 84p. Reports ongoing R leg weakness but pt notes he is able to ambulate. Still reports some ongoing numbness of foot. Back pain improved after injection therapy. HPI Comments History of Present Illness Details Documentation assistance for Drew Guzman MD, was provided by Bandar Pedro,? Oxygen Therapy Technician on 09/03/2024 at 11:56 AM EST. I, Dr. Guzman, have read, observed, and verified documentation. ?? PFSH Medical History Right leg weakness Right leg pain Right hip pain Laboratory exam ordered as part of routine general medical examination Screening for colon cancer Screening for prostate cancer Adult general medical exam Surgical History H/O colonoscopy History of tonsillectomy Family History Father Stomach cancer Social History Housing: House Alcohol intake: current Alcohol intake frequency: other Alcohol type: beer Comment: about 4 beers per year. Patient Tobacco Use Status: Current everyday Tobacco user Tobacco use type: Cigarette Cigarette Packs Per Day: 1 Years Smoked: 23 e-Cigarette/Vaping Use: Never Used Second Hand Smoke Exposure: No service: No Current occupational status: disabled Current occupational exposures/hazards: No Cognitive needs: No Hearing needs: No Vision needs: Yes Questionnaire PHQ-9 Over the last 2 weeks, how often have you been bothered by any of the following problems? 1. Little interest or pleasure in doing things: not at all 2. Feeling down, depressed, or hopeless: not at all 3. Trouble falling or staying asleep, or sleeping too much: not at all 4. Feeling tired or having little energy: not at all 5. Poor appetite or overeating: not at all 6. Feeling bad about yourself - or that you are a failure or have let yourself or your family down: not at all 7. Trouble concentrating on things, such as reading the newspaper or watching television: not at all 8. Moving or speaking so slowly that other people could have noticed. Or the opposite - being so fidgety or restless that you have been moving around a lot more than usual: not at all 9. Thoughts that you would be better off or of hurting yourself in some way: not at all Total score: 0 Source: Developed by Drs. Salbador Haley, Irene Ronquillo, Chavo Rod and colleagues, with an educational riya from [employer]. Thrive Questionnaire Date Thrive assessed: 08/27/24 I am a: Patient What is your living situation today?: I have a steady place to live Within the past 12 months, did the food you bought not last and you didn't have the money to get more?: Never true Within the past 12 months, did you worry whether your food would run out before you got money to buy more?: Never true Do you have trouble paying for medicines?: No Do you have trouble getting transportation to medical appointments?: No Do you have trouble paying your heating and electricity bill?: I choose not to answer this question Do you have trouble taking care of your child, family member or friend?: I choose not to answer this question Do you have trouble with day-to-day activities such as bathing, preparing meals, shopping, managing finances, etc.?: No Are you currently unemployed and looking for a job?: No Are you interested in more education?: No Please select the resources that you would like help with: None Currently or been in a relationship where the following occur: No concerns reported THRIVE Score: 0 AUDIT C Alcohol Use Questionnaire (AUDIT-C) 1. How often do you have a drink containing alcohol?: Never Total Score: 0 KINA-7 AMB Questionnaire KINA-7 Date KINA - 7 assessed: 05/23/24 Feeling nervous, anxious, or on edge: 0 = Not at all Not being able to stop or control worryin = Not at all Worrying too much about different things: 0 = Not at all Trouble relaxin = Not at all Being so restless that it is hard to sit still: 0 = Not at all Becoming easily annoyed or irritable: 0 = Not at all Feeling afraid as if something awful might happen: 0 = Not at all Total KINA-7 score (0-4 normal; 5-9 mild; 10-14 moderate; 15-21 severe): 0 Source: Developed by Drs. Salbador Haley, Irene Ronquillo, Chavo Rod and colleagues, with an educational riya from [employer]. Review of Systems Const Denies chills, Denies fatigue, Denies fever(s), Denies headache(s) and Denies weakness ENT Denies dizziness and Denies headache(s) Card Denies dyspnea Resp Denies cough, Denies dyspnea, Denies wheezing and Denies other (shortness of breath) Musc Denies numbness and Denies tingling Neuro Denies dizziness, Denies headache(s), Denies numbness, Denies tingling and Denies weakness Psych Denies anxiety and Denies depression Endo Denies fatigue Aller/Immun Denies wheezing Physical exam (Primary Care) Vital Signs: Last Vital Signs Temp 98.6 F 09/03/24 11:28 Pulse 84 09/03/24 11:28 Resp 14 09/03/24 11:28 BP 128/60 09/03/24 11:28 Pulse Ox 96 09/03/24 11:28 Oxygen Delivery Method Room Air 09/03/24 11:28 BMI result Body Mass Index 29.6 Tobacco/Smoking Status: Tobacco use Status Tobacco use date assessed 02/26/24 09/03/24 11:23 Patient Tobacco Use Status Current everyday Tobacco 09/03/24 11:23 Tobacco use type Cigarette 09/03/24 11:23 e-Cigarette/Vaping Use Never Used 09/03/24 11:23 PHQ-9: PHQ-9 Score PHQ-9: Total score 0 09/03/24 11:24 Thrive Assessment: Date of Thrive Assessment Date Thrive assessed 08/27/24 09/03/24 11:23 Currently or been in a relationship where the following occur: No concerns reported Const General: well developed; No acute distress Nutritional Appearance: well nourished Orientation/consciousness: patient oriented x3 HENMT Head: Yes normocephalic and Yes atraumatic Eyes General: appearance normal, both eyes and all related structures Pupils: Equal, round and reactive pupils present EOM: EOMs intact bilaterally Resp Effort & Inspection: normal respiratory effort Auscultation: clear to auscultation bilaterally Cardio Rate: regular rate Rhythm: regular rhythm Heart sounds: S1 normal heart sound present, S2 normal heart sound present, no gallops, no murmurs and no rubs Neuro Other: Decreased dorsiflexion on the R with some numbness General: patient oriented x3 and gait normal Cranial nerves: Yes Equal, round and reactive pupils present Psych Affect: normal affect Coding Level of Care Code Est Pt Level 4 (58839) Diagnoses Elevated blood pressure reading R03.0 Disc degeneration, lumbar M51.369 Chronic pain syndrome G89.4 Right leg weakness R29.898 BPH loc w urin obs/LUTS N40.1 Right foot drop M21.371 Assessment & Plan Assessment & Plan (1) Elevated blood pressure reading: Code(s): R03.0 - Elevated blood-pressure reading, without diagnosis of hypertension Category: Medical Plan: Blood?pressure?128/60?today. No?indication?for?starting?medicine Work?at?weight?control,?exercise?and?watch?salt/sodium?diet We?will?monitor?periodically (2) Disc degeneration, lumbar: Code(s): M51.369 - Other intervertebral disc degeneration, lumbar region without mention of lumbar back pain or lower extremity pain Category: Medical Plan: Has?been?followed?by?Neurology?and?has spinal?stenosis?with?some?numbness?on?his?right?foot?and?also?decreased?dorsiflexion See?below (3) Chronic pain syndrome: Code(s): G89.4 - Chronic pain syndrome Category: Medical Plan: Right?leg?pain?significantly?improved?after?injection?therapy?by?pain?management Follow-up?pain?management?recommended (4) Right leg weakness: Code(s): R29.898 - Other symptoms and signs involving the musculoskeletal system Category: Medical Plan: Ongoing?right?leg?weakness?and?this?may?be?secondary?to?spinal?stenosis?as?well?as?some?this?use?due?to?pain Pain?has?improved?after ?injection?therapy. Still?has?some?numbness?and?has?signed?a?weakness?at?right?leg?on?dorsiflexion. He?will?work?at?exercise?and?walking?to?see?if?this?improves. If?not?improving?or?worsens?could?consider?ankle-foot?orthotic Had?seen?neurology?previously.??Had?an?appointment?that?he?canceled?recently/today. Will?refer?back?Neurology?if?worsening (5) BPH loc w urin obs/LUTS: Code(s): N40.1 - Benign prostatic hyperplasia with lower urinary tract symptoms Category: Medical Plan: Symptoms?much?improved?with?tamsulosin?verses?alfuzosin?that?he?was?on?before Continue?tamsulosin Has?an?appointment?with?Urology?to?follow-up?his?upcoming?bladder?ultrasound (6) Right foot drop: Code(s): M21.371 - Foot drop, right foot Category: Medical Plan: As?above
[2024-09-03 11:28] VITALS: BP 128/60; PULSE 84; RESP 14; TEMP 37; O2SAT 96; BMI 29.6
== END 2024-09-03 11:59 | disposition home or self-care (01) ==
PROVIDERS: PCP Family Medicine; Visit Provider Family Medicine
DX: R03.0 Elevated blood-pressure reading, without diagnosis of hypertension (principal); M51.369 Other intervertebral disc degeneration, lumbar region without mention of lumbar back pain or lower extremity pain; G89.4 Chronic pain syndrome; R29.898 Other symptoms and signs involving the musculoskeletal system; N40.1 Benign prostatic hyperplasia with lower urinary tract symptoms; M21.371 Foot drop, right foot

== ENCOUNTER → 2024-09-03 11:11 | Outpatient (BNVA) | payer MEDICARE, SELFPAY | PROVIDERS: PCP Family Medicine; Visit Provider Family Medicine | DX: R03.0 Elevated blood-pressure reading, without diagnosis of hypertension (principal); M51.369 Other intervertebral disc degeneration, lumbar region without mention of lumbar back pain or lower extremity pain; G89.4 Chronic pain syndrome; R29.898 Other symptoms and signs involving the musculoskeletal system; N40.1 Benign prostatic hyperplasia with lower urinary tract symptoms; M21.371 Foot drop, right foot | CPT/HCPCS: 99212 ==

== ENCOUNTER 2024-10-14 09:40 | Outpatient (REF) | payer MEDICARE, SELFPAY ==
--- NOTE | ~2024-10-14 | US_ITS ---
CLINICAL HISTORY: R33.9 - Retention of urine, unspecified US Renal Comparison: None Findings: Right kidney normal size and echotexture, 9.6 cm length. Left kidney normal size and echotexture, 11.2 cm length. No hydronephrosis of either kidney. Normal color Doppler. Urinary bladder is significant for diverticula. Prevoid volume 484 mL. Postvoid volume 302 mL. Bilateral ureteral jets are visualized. IMPRESSION: 1. Normal kidneys. 2. Significant postvoid residual. 3. Urinary bladder diverticula. This document has been electronically signed by: Curt Nichole MD on 10/14/2024 11:59:54
== END 2024-10-14 09:41 | disposition home or self-care (01) ==
LOC: HO.US 09:40
PROVIDERS: PCP Family Medicine; Visit Provider Urology
DX: R33.9 Retention of urine, unspecified (principal); N40.1 Benign prostatic hyperplasia with lower urinary tract symptoms
CPT/HCPCS: 76770

== ENCOUNTER → 2024-10-14 09:42 | Outpatient (BNV) | payer MEDICARE, SELFPAY | PROVIDERS: PCP Family Medicine; Visit Provider Radiology Diagnostic Radiology | DX: R33.9 Retention of urine, unspecified (principal) | CPT/HCPCS: 76770 ==

== ENCOUNTER 2024-10-22 07:33 | Day surgery (SDC) | payer MEDICARE, SELFPAY ==
[2024-10-18 12:33] VITALS: BMI 29.2
--- NOTE | 2024-10-21 09:18 | P.CONAN_ITS ---
Documented by User: Selina Cardona NP 10/21/24 09:18 HPI - Anesthesia Eval Consult details Narrative: 69yo M for Colonoscopy PMFSH Active Problems Active Problems: All Active Problems Right foot drop (Acute) Right leg weakness (Acute) BPH loc w urin obs/LUTS (Acute) Incomplete bladder emptying (Acute) Pre-op examination (Acute) Chronic pain syndrome (Acute) Trochanteric bursitis, right hip (Acute) Disc degeneration, lumbar (Acute) Spondylosis of lumbar region without myelopathy or radiculopathy (Acute) Spinal stenosis (Acute) Feeling of incomplete bladder emptying (Acute) Elevated blood pressure reading (Acute) Footdrop (Acute) Smoker (Acute) History of colon polyps (Acute) Urinary hesitancy (Acute) Urinary frequency (Acute) Past Medical History Medical History Right leg weakness Right leg pain Right hip pain Laboratory exam ordered as part of routine general medical examination Screening for colon cancer Screening for prostate cancer Adult general medical exam Family History Family History Father Stomach cancer Surgical History Surgical History H/O colonoscopy History of tonsillectomy Social History Social History Housing: House Are you a primary resident care supervisor to a significant other at home: No Do you presently have visiting nurse or other home services: No Alcohol intake: current Alcohol intake frequency: other Alcohol type: beer Comment: about 4 beers per year. Patient Tobacco Use Status: Current everyday Tobacco user Tobacco use type: Cigarette Cigarette Packs Per Day: 1 Years Smoked: 23 Smoked in Last 30 Days: Yes e-Cigarette/Vaping Use: Never Used Patient Interested in Nicotine Replacement: No Second Hand Smoke Exposure: No Have you been hit, kicked, punched, or otherwise hurt by someone within the past year? If so, by whom?: No Are you DNR?: No Advance Directives: No Advance Directives Information Provided: Yes service: No Current occupational status: disabled Current occupational exposures/hazards: No Cognitive needs: No Hearing needs: No Vision needs: Yes Meds Allergies Allergy/AdvReac Type Severity Reaction Status Date / Time acetaminophen Allergy Severe Anaphylaxis Verified 10/22/24 08:40 [From Tylenol-Codeine #3] codeine Allergy Severe Anaphylaxis Verified 10/22/24 08:40 [From Tylenol-Codeine #3] Codeine Sulfate Allergy Unknown tongue Uncoded 10/22/24 08:40 swelling Home Medications ?Medication ?Instructions ?Recorded ?Confirmed ?Last Taken ?Type acetaminophen 500 mg tablet 1,000 mg PO QID PRN Mild Pain 02/26/24 10/22/24 Unknown History (Tylenol Extra Strength) (Scale Score 1-4) ibuprofen 200 mg tablet 400 mg PO Q8H PRN Mild Pain (Scale 07/12/24 10/22/24 Unknown History Score 1-4) Exam Height,Weight and Vital Signs: Height 5 ft 8 in Weight 87.09 kg Assessment and Plan Assessment Anesthesia Assessment: Chart Reviewed Documented by User: Doris Ku MD 10/22/24 09:31 PMFSH Past Medical History Medical History Right leg weakness Right leg pain Right hip pain Laboratory exam ordered as part of routine general medical examination Screening for colon cancer Screening for prostate cancer Adult general medical exam Family History Family History Father Stomach cancer Surgical History Surgical History H/O colonoscopy History of tonsillectomy History of Problems with Anesthesia: No Social History Social History Housing: House Are you a primary resident care supervisor to a significant other at home: No Do you presently have visiting nurse or other home services: No Alcohol intake: current Alcohol intake frequency: other Alcohol type: beer Comment: about 4 beers per year. Patient Tobacco Use Status: Current everyday Tobacco user Tobacco use type: Cigarette Cigarette Packs Per Day: 1 Years Smoked: 23 Smoked in Last 30 Days: Yes e-Cigarette/Vaping Use: Never Used Patient Interested in Nicotine Replacement: No Second Hand Smoke Exposure: No Have you been hit, kicked, punched, or otherwise hurt by someone within the past year? If so, by whom?: No Are you DNR?: No Advance Directives: No Advance Directives Information Provided: Yes service: No Current occupational status: disabled Current occupational exposures/hazards: No Cognitive needs: No Hearing needs: No Vision needs: Yes Meds Allergies Allergy/AdvReac Type Severity Reaction Status Date / Time acetaminophen Allergy Severe Anaphylaxis Verified 10/22/24 08:40 [From Tylenol-Codeine #3] codeine Allergy Severe Anaphylaxis Verified 10/22/24 08:40 [From Tylenol-Codeine #3] Codeine Sulfate Allergy Unknown tongue Uncoded 10/22/24 08:40 swelling Home Medications ?Medication ?Instructions ?Recorded ?Confirmed ?Last Taken ?Type acetaminophen 500 mg tablet 1,000 mg PO QID PRN Mild Pain 02/26/24 10/22/24 Unknown History (Tylenol Extra Strength) (Scale Score 1-4) ibuprofen 200 mg tablet 400 mg PO Q8H PRN Mild Pain (Scale 07/12/24 10/22/24 Unknown History Score 1-4) Exam Airway Mallampati Class: III TM Dist: >3cm Neck ROM: Full Loose/Missing/Broken Teeth: No Heart: RRR Lungs: CTA Assessment and Plan Assessment Anesthesia Assessment: Anesthesia Plan Discussed Final Anesthetic Review History of Problems with Anesthesia: No NPO: Yes ASA Class: II Final Preanesthetic Review: Meds/Allgs Chart Reviewed, Consent Obtained/Reviewed and Anes Risks/Benef Reviewed Patient Risk: Low Procedure Risk: Low Anesthetic Plan Anesthetic Plan: MAC: Disposition: Standard PACU
[2024-10-22 08:34] VITALS: BMI 28.9
[2024-10-22] MEDS: Sodium Phosphate,Mono-Dibasic 133 ML ENEMA PR (08:43)
[2024-10-22] MEDS: Lactated Ringers 1,000 ML 100 ML IVCONT (08:43)
[2024-10-22 09:06] VITALS: BP 136/89; PULSE 93; RESP 18; TEMP 36.8; O2SAT 96
--- NOTE | 2024-10-22 09:11 | MHC.SHP ---
Pre-Procedural Eval Section A - 24 Hr Update-Section A only Date of Service: 10/22/24 Section B - Complete if H&P > 30 days Chief Complaint: screening Relevant Family History (Specify if Yes): No Relevant Social History: Tobacco Use Present Medications: see Short Stay Collaborative assessment Medical History: Significant History (Right leg weakness Right leg pain Right hip pain) History of Previous Operations: Relevant previous surgery/procedure and date(s) ( H/O colonoscopy History of tonsillectomy) Allergies: Allergies Allergy/AdvReac Type Severity Reaction Status Date / Time acetaminophen Allergy Severe Anaphylaxis Verified 10/22/24 08:40 [From Tylenol-Codeine #3] codeine Allergy Severe Anaphylaxis Verified 10/22/24 08:40 [From Tylenol-Codeine #3] Codeine Sulfate Allergy Unknown tongue Uncoded 10/22/24 08:40 swelling Review of Systems Sugical H&P ROS: Negative: Constitution, Cardiovascular, Respiratory, Neurological, Psychiatric, Hem-Onc, Allergic/Immunologic, Gastrointestinal, Genitourinary, Musculoskeletal, Integumentary, Endocrine and Eyes/Ears/Nose/Throat Exam Surgical H&P Exam: Normal: HEENT, Normal: Heart, Normal: Lungs, Normal: Extremities, Normal: Abdomen, Normal: Skin and Normal: Neurological Plan Diagnosis/Plan: Unchanged I have reviewed the history and physical and performed a pertinent physical examination on my patient. No changes have occurred unless specified. Time Spent With Patient Time: Total time managing care of this patient today ____ minutes.
--- NOTE | 2024-10-22 10:31 | P.OPN-COLO_ITS ---
Colonoscopy Operative Note Operative Note Date of Service: 10/22/24 Narrative: Operative Information Procedure Description: Colonoscopy Indication: screening Anesthesia: MAC COLONOSCOPY Instrument: Olympus variable stiffness pediatric scope 190L Colonoscopy Monitoring: Vital signs and clinical assessment, continuous EKG monitoring, Pulse oximetry, Carbon Dioxide monitoring and blood pressure monitoring were done throughout the procedure. Colon withdrawal time was 18 minutes. Procedure: The patient was placed in the left lateral decubitis position and pre-procedure medications were administered. After a digital rectal examination of the ano-rectum, the video colonoscope was inserted into the rectum and advanced through the colon to the cecum/TI. The colonoscope was slowly withdrawn in a retrograde panoramic fashion and the colon mucosa was carefully examined including a retroflexed view of the rectum. Findings and interventions are described below. Procedure Difficulty: easy Findings: Terminal Ileum-normal Cecum:normal Ascending Colon: 10 mm sessile polyp lifted with eleview and removed with cold snare, 5-7 mm sessile polyp removed with cold forceps Transverse Colon -normal Descending Colon:normal Sigmoid Colon: 10 mm sessile polyp removed with cold snare Rectum: Retroflexion with small to medium sized internal hemorrhoids seen, grade I Anorectum - normal Intervention: cold snare, cold snare with eleview injection and cold forceps Colon preparation: [place] Bowel Preparation Scale Right colon; 2 Transverse colon: 2 Left colon; 2 (0 = Unprepared colon segment with mucosa not seen due to solid stool that cannot be cleared. 1 = Portion of mucosa of the colon segment seen, but other areas of the colon segment not well seen due to staining, residual stool and/or opaque liquid. 2 = Minor amount of residual staining, small fragments of stool and/or opaque liquid, but mucosa of colon segment seen well. 3 = Entire mucosa of colon segment seen well with no residual staining, small fragments of stool or opaque liquid) Impression and Post Procedure Diagnosis: colon polyps x 3 internal hemorrhoids Plan: High fiber diet leaflet Avoid straining at stool, epsom salts and sitz bath, anusol supps or cream Repeat Colonoscopy in 3 years or earlier if clinically indicated Above findings were reviewed with the patient and relevant handouts were provided if indicated.
[2024-10-22 10:35] VITALS: BP 88/52; PULSE 69; RESP 16; TEMP 36.7; O2SAT 97
[2024-10-22 10:50] VITALS: BP 122/65; PULSE 61; RESP 16; TEMP 36.7; O2SAT 95
== END 2024-10-22 11:20 | disposition home or self-care (01) ==
PROVIDERS: PCP Family Medicine; Visit Provider Internal Medicine Gastroenterology
PROC: 0DJD8ZZ Inspection of Lower Intestinal Tract, Via Natural or Artificial Opening Endoscopic (ICD-10-PCS; CPT 45378; principal; 2024-10-22 10:10)
DX: Z12.11 Encounter for screening for malignant neoplasm of colon (principal); D12.2 Benign neoplasm of ascending colon; K64.0 First degree hemorrhoids; G89.4 Chronic pain syndrome; F17.210 Nicotine dependence, cigarettes, uncomplicated; Z79.899 Other long term (current) drug therapy
CPT/HCPCS: 45385; 45381; 45380; 88305; J2704

== ENCOUNTER → 2024-10-22 07:33 | Outpatient (BNV) | payer MEDICARE, SELFPAY | PROVIDERS: PCP Family Medicine; Visit Provider Internal Medicine Gastroenterology | DX: Z12.11 Encounter for screening for malignant neoplasm of colon (principal); D12.2 Benign neoplasm of ascending colon; K63.5 Polyp of colon; K64.0 First degree hemorrhoids | CPT/HCPCS: 45380; 45381; 45385 ==

== ENCOUNTER 2024-10-29 09:41 | Outpatient (AMB) | payer MEDICARE, SELFPAY ==
[2024-10-29 09:44] VITALS: BP 121/73; PULSE 84
--- NOTE | 2024-10-29 09:44 | A.OFFVIS_ITS ---
Vital Signs 10/29/24 09:44 Height 5 ft 8 in Weight 197 lb 1.492 oz BMI 30.0 BP 121/73 Blood Pressure Location Lt brachial Position Sitting Pulse 84 Intake Visit Reasons: s/p colo Arceo Intake Note: Drew presents in follow up s/p colonoscopy. CC: Patient reports doing well and denies having any GI symptoms or concerns today. Dog Food Dough Mixer Required: No Accompanied by: Self / Same As Patient Allergies acetaminophen [From Tylenol-Codeine #3] Allergy (Severe, Verified 10/29/24 09:55) Anaphylaxis codeine [From Tylenol-Codeine #3] Allergy (Severe, Verified 10/29/24 09:55) Anaphylaxis Codeine Sulfate Allergy (Unknown, Uncoded 10/22/24 08:40) tongue swelling HPI HPI s/p colo Arceo: Details: Assssment & Plan (1) Smoker: Code(s): F17.200 - Nicotine dependence, unspecified, uncomplicated Category: Social Hx (2) Pre-op examination: Code(s): Z01.818 - Encounter for other preprocedural examination Category: Medical Plan His last scope was in 2018 and he had 2 polyps - this was probably at [facility]. NO bowel or upper GI problems. He denies any cardiac or respiratory problems. NO prior problems with anesthesia or sedation. No ID problems. He had 2 polys removed as above. Orders: Orders Colonoscopy - GI Use Only Today F17.200 - Nicotine dependence, unspecified, uncomplicated, Z01.818 - Encounter for other preprocedural examination Medications: New sodium,potassium,mag sulfates 17.5-3.13-1.6 gram (Suprep Bowel Prep Kit) 480 mL orally; FOR COLONOSCOPY PREP 354 mL 0RF COLONOSCOPY 10/22/24 Findings: Terminal Ileum-normal Cecum:normal Ascending Colon: 10 mm sessile polyp lifted with eleview and removed with cold snare, 5-7 mm sessile polyp removed with cold forceps Transverse Colon -normal Descending Colon:normal Sigmoid Colon: 10 mm sessile polyp removed with cold snare Rectum: Retroflexion with small to medium sized internal hemorrhoids seen, grade I Anorectum - normal Intervention: cold snare, cold snare with eleview injection and cold forceps Impression and Post Procedure Diagnosis: colon polyps x 3 internal hemorrhoids Plan: High fiber diet leaflet Avoid straining at stool, epsom salts and sitz bath, anusol supps or cream Repeat Colonoscopy in 3 years or earlier if clinically indicated BIOPSY Received: 10/22/24 Diagnosis A. Colon, ascending, polypectomies: Fragments of tubular adenomata; negative for high-grade dysplasia or carcinoma. B. Colon, sigmoid, polypectomy: Hyperplastic mucosal polyp. TODAY'S VISIT THE PROCEDURE SHOULD BE REPEATED 3 YEARS DUE TO THE SIZE OF THE TUBULAR adenoma. The procedure was well tolerated. The results were explained and the patient is agreeable to the follow-up interval as stated. The bowel pattern has returned to normal. Education was provided to tell any 1st degree relatives about their findings to be sure that they are screened by age 45. Educated that they will be put on a recall list when it is time for their repeat scope but should they move out of state or away from the hospital they will need to remember along with their primary to repeat the procedure in a timely fashion to avoid any adverse complications. He has a lot of rectal irritation from the change in prep and we did discuss using a barrier cream on the anus prior to prepping and I will try to remind him of this next time. [facility] Medical History (Updated 10/29/24 @ 09:58 by ALLA Rodriguez) History of colon polyps Right leg weakness Right leg pain Right hip pain Laboratory exam ordered as part of routine general medical examination Screening for colon cancer Screening for prostate cancer Adult general medical exam Surgical History (Updated 10/29/24 @ 09:58 by ALLA Rodriguez) H/O colonoscopy History of tonsillectomy Family History Father Stomach cancer Social History Housing: House Are you a primary restorative care technician to a significant other at home: No Do you presently have visiting nurse or other home services: No Alcohol intake: current Alcohol intake frequency: other Alcohol type: beer Comment: about 4 beers per year. Patient Tobacco Use Status: Current everyday Tobacco user Tobacco use type: Cigarette Cigarette Packs Per Day: 1 Years Smoked: 23 e-Cigarette/Vaping Use: Never Used Second Hand Smoke Exposure: No service: No Current occupational status: disabled Current occupational exposures/hazards: No Cognitive needs: No Hearing needs: No Vision needs: Yes Review of Systems Const Denies fatigue, Denies fever(s), Denies night sweats, Denies poor appetite and Denies weight loss Eyes Reports requires corrective lenses ENT Reports Normal hearing present, Denies dental pain, Denies dysphagia, Denies hearing loss, Denies mouth pain, Denies odynophagia, Denies throat swelling, Denies tongue swelling and Reports other (Dentition adequate) Card Reports no additional complaints Resp Reports no additional complaints GI Details: Rectal irritation Denies abdominal pain, Denies melena, Denies bloating, Denies hematochezia, Denies constipation, Denies GI cramping, Denies dysphagia, Denies excessive flatus, Denies early satiety, Denies heartburn, Denies diarrhea, Denies nausea, Denies odynophagia, Denies vomiting and Denies hematemesis Skin/Breast Denies pruritus, Denies lesions, Denies rash and Denies jaundice Neuro Reports Normal hearing present and Denies Abnormal speech present Endo Denies fatigue Aller/Immun Denies throat swelling and Denies tongue swelling Physical Exam Vital Signs: Last Vital Signs Pulse 84 10/29/24 09:44 BP 121/73 10/29/24 09:44 BMI result Body Mass Index 30.0 Const General: cooperative, no acute distress, well developed and well groomed Nutritional Appearance: well nourished and obese centrally obese Orientation/consciousness: oriented to person, oriented to place and oriented to time Limitations: No language barrier HEENT Head: Yes normocephalic and Yes atraumatic Eyes General: appearance normal, both eyes and all related structures Pupils: Equal, round and reactive pupils present Neck Neck: Yes normal visual inspection and Yes no lymphadenopathy Thyroid: Thyroid normal Resp Effort & Inspection: normal respiratory effort and able to speak in complete sentences Auscultation: clear to auscultation bilaterally Cardio Rate: regular rate Rhythm: regular rhythm Heart sounds: Normal, physiologic split S2 sound present Peripheral pulses: radial pulses present and posterior tibial pulses present GI Inspection: No distended, No Abdominal panniculus present and Yes obesity Palpation (GI): Soft to palpation, nontender, no guarding, not rigid and No hepatosplenomegaly present Percussion: Yes normal to percussion Auscultation: normal bowel sounds Rectal Exam - Male: Yes deferred Skin General skin exam: no rashes or lesions noted, turgor normal, skin not dry, no jaundice, No spider nevi and no striae Rashes: no rashes Nails: normal Neuro General: oriented to person, oriented to place and oriented to time Cranial nerves: Yes Equal, round and reactive pupils present and Yes Normal hearing present Speech: No Abnormal speech present Extrem General: Yes normal to inspection, No clubbing, No cyanosis and No edema Psych Appearance: grossly normal and well kempt Mental Status: mental status grossly normal Speech and movement: Normal speech and movement present Affect: normal affect Attitude: cooperative Thought process: Normal thought process present and not confabulating Thought content: Normal thought content present Insight: Good insight present (Psych) Judgement: Good judgement present (Psych) Assessment & Plan Assessment & Plan (1) Tubular adenoma of colon: Comment: 10/22/2024= 110 mm sessile TA and 1 hyperplastic polyp repeat in 3 years Code(s): D12.6 - Benign neoplasm of colon, unspecified Category: Medical Plan THE PROCEDURE SHOULD BE REPEATED 3 YEARS DUE TO THE SIZE OF THE TUBULAR adenoma. The procedure was well tolerated. The results were explained and the patient is agreeable to the follow-up interval as stated. The bowel pattern has returned to normal. Education was provided to tell any 1st degree relatives about their findings to be sure that they are screened by age 45. Educated that they will be put on a recall list when it is time for their repeat scope but should they move out of state or away from the hospital they will need to remember along with their primary to repeat the procedure in a timely fashion to avoid any adverse complications. He has a lot of rectal irritation from the change in prep and we did discuss using a barrier cream on the anus prior to prepping and I will try to remind him of this next time. Coding Level of Care Code Est Pt Level 3 (14937) Diagnoses Tubular adenoma of colon D12.6
== END 2024-10-29 10:22 | disposition home or self-care (01) ==
LOC: HO.HGI 09:41
PROVIDERS: PCP Family Medicine; Visit Provider Nurse Practitioner
DX: D12.6 Benign neoplasm of colon, unspecified (principal)
CPT/HCPCS: 99213

== ENCOUNTER → 2024-10-29 09:41 | Outpatient (BNVA) | payer MEDICARE, SELFPAY | PROVIDERS: PCP Family Medicine; Visit Provider Nurse Practitioner | DX: D12.6 Benign neoplasm of colon, unspecified (principal) | CPT/HCPCS: 99212 ==

== ENCOUNTER 2024-10-31 10:06 | Outpatient (AMB) | payer MEDICARE, SELFPAY ==
--- NOTE | 2024-10-31 10:11 | MHC.OFFVIS ---
Intake Visit Reasons: 3m/US Intake Note: Patient presents to office today for 3 month follow up/US Urology Medication:Tamsulosin Antibiotic Allergies:None Blood Thinners: None PVR:203ml Classified Advertising Supervisor Required: No Accompanied by: Self / Same As Patient Allergies acetaminophen [From Tylenol-Codeine #3] Allergy (Severe, Verified 10/31/24 10:19) Anaphylaxis codeine [From Tylenol-Codeine #3] Allergy (Severe, Verified 10/31/24 10:19) Anaphylaxis Codeine Sulfate Allergy (Unknown, Uncoded 10/22/24 08:40) tongue swelling Medication List - Last Reconciled 10/31/24 by Juarez Medrano MD ibuprofen 400 mg PO Q8H PRN tamsulosin (Flomax) 0.4 mg PO BID HPI Comments Details: 10/31/24--Drew is a 69-year-old male who is here in follow-up due to BPH and incomplete bladder emptying he had a renal ultrasound was done which noted some bladder diverticuli as well as elevated postvoid residual. Urinalysis today is within normal limits leukocytes negative blood negative he was initially evaluated on 07/29/24 at that time tamsulosin was discussed. Management options discussed including medication versus surgical options including resection versus laser therapies to resect the prostate. Plan increase tamsulosin to twice a day follow-up for office cystoscopy. Results: -labs reviewed-PSA on 03/29/2024--2.25 ng/dL US renal/bladder-10/14/24--Normal kidneys. Significant postvoid residual. Urinary bladder diverticula. 07/29/24--Drew is a 69-year-old gentleman who states that he feels that he is not emptying his bladder well. Patient states he was prescribed Alfuzosin by his PCP for his Urinary Frequency and Incomplete Emptying, Patient states that Alfuzsoin has little effect he gets up numerous times during the night to urinate and feels that he does not empty his bladder enough. AUA symptom score 30/35. The patient states he has had progression of symptoms over the last 5 years he has been on the alfuzosin for about 4 months. I have discussed a trial of tamsulosin 0.4 mg in the evening which we can increase to b.i.d. pending symptom improvement. Discussed alternative treatment options include therapies to resect or laser prostate. We will check renal and bladder ultrasound. Follow-up in 3 months. Bladder scan PVR today is 237 mL. Urinalysis negative blood leukocytes trace. Review of chart-labs PSA-03/29/2024 equals 2.25 mg/dL. [facility] Medical History History of colon polyps Right leg weakness Right leg pain Right hip pain Laboratory exam ordered as part of routine general medical examination Screening for colon cancer Screening for prostate cancer Adult general medical exam Surgical History H/O colonoscopy History of tonsillectomy Family History Father Stomach cancer Social History Housing: House Are you a primary career information specialist to a significant other at home: No Do you presently have visiting nurse or other home services: No Alcohol intake: current Alcohol intake frequency: other Alcohol type: beer Comment: about 4 beers per year. Patient Tobacco Use Status: Current everyday Tobacco user Tobacco use type: Cigarette Cigarette Packs Per Day: 1 Years Smoked: 23 e-Cigarette/Vaping Use: Never Used Second Hand Smoke Exposure: No service: No Current occupational status: disabled Current occupational exposures/hazards: No Cognitive needs: No Hearing needs: No Vision needs: Yes Review of Systems Const All systems reviewed & are unremarkable except as noted in HPI and below Reports no additional complaints Eyes Reports no additional complaints ENT Reports no additional complaints Card Reports no additional complaints Resp Reports no additional complaints GI Reports no additional complaints Reports as per HPI Musc Reports no additional complaints Skin/Breast Reports system reviewed and no additional complaints, except as documented Neuro Reports no additional complaints Psych Reports no additional complaints Endo Reports no additional complaints Surendra/Lymph Reports no additional complaints Aller/Immun Reports no additional complaints Results Reviewed Results Reviewed: Date of Service: 10/14/24 CLINICAL HISTORY: R33.9 - Retention of urine, unspecified US Renal Comparison: None Findings: Right kidney normal size and echotexture, 9.6 cm length. Left kidney normal size and echotexture, 11.2 cm length. No hydronephrosis of either kidney. Normal color Doppler. Urinary bladder is significant for diverticula. Prevoid volume 484 mL. Postvoid volume 302 mL. Bilateral ureteral jets are visualized. IMPRESSION: 1. Normal kidneys. 2. Significant postvoid residual. 3. Urinary bladder diverticula. Assessment & Plan Assessment & Plan (1) BPH loc w urin obs/LUTS: Code(s): N40.1 - Benign prostatic hyperplasia with lower urinary tract symptoms Category: Medical (2) Incomplete bladder emptying: Code(s): R33.9 - Retention of urine, unspecified Category: Medical (3) Bladder wall thickening: Code(s): N32.89 - Other specified disorders of bladder Category: Medical Plan Plan increase tamsulosin to twice a day follow-up for office cystoscopy. Medications: Changed From tamsulosin (Flomax) 0.4 mg PO BEDTIME 90 caps 1RF enlarged prostate To tamsulosin (Flomax) 0.4 mg PO BID 180 caps 2RF enlarged prostate Patient Instructions: The patient had an opportunity to ask questions regarding treatment plan. The patient expressed understanding and agreement with the above treatment plan. The patient is aware they should contact our office by phone for worsening of their current condition or the appearance of new symptoms. Compliance is encouraged with any medications and followup testing that is ordered. It is a privilege to be allowed the opportunity to participate in the urologic care of your patient. If you have any questions or concerns regarding treatment for the above conditions please do not hesitate to contact me. The office telephone contact is [phone]. This note is constructed in part using voice recognition software. While every effort has been made to ensure accuracy carton lettering machine operator errors may have been included. Yours sincerely, Juarez Medrano MD Coding Level of Care Code Est Pt Level 4 (58954) Complex EM visit Add On G2211 Diagnoses BPH loc w urin obs/LUTS N40.1 Incomplete bladder emptying R33.9 Bladder wall thickening N32.89
== END 2024-10-31 10:48 | disposition home or self-care (01) ==
LOC: HO.HUSH 10:07
PROVIDERS: PCP Family Medicine; Visit Provider Urology
DX: N40.1 Benign prostatic hyperplasia with lower urinary tract symptoms (principal); R33.9 Retention of urine, unspecified; N32.89 Other specified disorders of bladder; Z13.9 Encounter for screening, unspecified
CPT/HCPCS: 99214; G2211

== ENCOUNTER → 2024-10-31 10:06 | Outpatient (BNVA) | payer MEDICARE, SELFPAY | PROVIDERS: PCP Family Medicine; Visit Provider Urology | DX: N40.1 Benign prostatic hyperplasia with lower urinary tract symptoms (principal); R33.8 Other retention of urine; N32.89 Other specified disorders of bladder | CPT/HCPCS: 81003; 99212 ==

== ENCOUNTER 2024-11-20 10:19 | Outpatient (AMB) | payer MEDICARE, SELFPAY ==
[2024-11-20 11:07] VITALS: BP 138/75; PULSE 88; O2SAT 96; BMI 27.3
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
== END 2024-11-20 11:18 | disposition home or self-care (01) ==
LOC: HO.PMC 10:20
PROVIDERS: PCP Family Medicine; Visit Provider Anesthesiology
DX: M48.00 Spinal stenosis, site unspecified (principal); M47.816 Spondylosis without myelopathy or radiculopathy, lumbar region; M51.369 Other intervertebral disc degeneration, lumbar region without mention of lumbar back pain or lower extremity pain; M70.61 Trochanteric bursitis, right hip; M79.18 Myalgia, other site; G89.4 Chronic pain syndrome
CPT/HCPCS: 20552; 99213

== ENCOUNTER → 2024-11-20 10:19 | Outpatient (BNVA) | payer MEDICARE, SELFPAY | PROVIDERS: PCP Family Medicine; Visit Provider Anesthesiology | DX: M79.18 Myalgia, other site (principal); M47.816 Spondylosis without myelopathy or radiculopathy, lumbar region; M48.00 Spinal stenosis, site unspecified; M51.369 Other intervertebral disc degeneration, lumbar region without mention of lumbar back pain or lower extremity pain; M70.61 Trochanteric bursitis, right hip; G89.4 Chronic pain syndrome | CPT/HCPCS: 20552; 99212; J0665; J3300 ==

== ENCOUNTER 2024-12-24 09:09 | Outpatient (AMB) | payer MEDICARE, SELFPAY ==
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
[2024-12-24 09:22] VITALS: BP 118/70; PULSE 62; O2SAT 97
== END 2024-12-24 10:02 | disposition home or self-care (01) ==
PROVIDERS: PCP Family Medicine; Visit Provider Physician Assistant
DX: M70.51 Other bursitis of knee, right knee (principal)

== ENCOUNTER → 2024-12-24 09:09 | Outpatient (BNVA) | payer MEDICARE, SELFPAY | PROVIDERS: PCP Family Medicine; Visit Provider Physician Assistant | DX: M70.51 Other bursitis of knee, right knee (principal) | CPT/HCPCS: 99212 ==

== ENCOUNTER 2025-01-30 10:20 | Outpatient (AMB) | payer MEDICARE, SELFPAY ==
--- NOTE | 2025-01-29 21:51 | MHC.OFFVIS ---
Intake Visit Reasons: cysto Intake Note: Patient presents to office today for cystoscopy Urology Medication:Tamsulosin Antibiotic Allergies:None Blood Thinners: None Hand Paint Mixer Required: No Accompanied by: Self / Same As Patient Allergies acetaminophen (From Tylenol-Codeine #3) Allergy (Severe, Verified 01/30/25 10:26) Anaphylaxis codeine (From Tylenol-Codeine #3) Allergy (Severe, Verified 01/30/25 10:26) Anaphylaxis Codeine Sulfate Allergy (Unknown, Uncoded 12/24/24 09:24) tongue swelling Medication List - Last Reconciled 01/30/25 by Juarez Medrano MD finasteride (Proscar) 5 mg PO DAILY ibuprofen 400 mg PO Q8H PRN meloxicam 15 mg PO DAILY PRN tamsulosin (Flomax) 0.4 mg PO BID HPI Comments Details: 01/30/25--Here for office cystoscopy further eval LV--10/31/24--follow-up due to BPH and incomplete bladder emptying he had a renal ultrasound was done which noted some bladder diverticuli as well as elevated postvoid residual. tamsulosin increased to bid History of Present Illness - The patient is a 69-year-old male presenting for office cystoscopy due to lower urinary tract symptoms and evaluation of BPH. - History of BPH with symptoms of incomplete bladder emptying. - Previous renal ultrasound in September showed normal kidneys but possible bladder diverticulae and elevated post-void residual. - Current medication includes tamsulosin, which has improved urinary symptoms. - PSA level on 03/29/24 was 2.25 ng/mL. Results - Renal ultrasound- 10/14/24: Normal kidneys, possible bladder diverticulae, elevated post-void residual. - PSA: 2.25 ng/mL on 03/29/24. - Cystoscopy findings today 01/30/25: Bilobar enlargement of the prostate, mild prominence of the median lobe, significant trabeculations, and small diverticulae observed. 10/31/24--Drew is a 69-year-old male who is here in follow-up due to BPH and incomplete bladder emptying he had a renal ultrasound was done which noted some bladder diverticuli as well as elevated postvoid residual. Urinalysis today is within normal limits leukocytes negative blood negative he was initially evaluated on 07/29/24 at that time tamsulosin was discussed. Management options discussed including medication versus surgical options including resection versus laser therapies to resect the prostate. Plan increase tamsulosin to twice a day follow-up for office cystoscopy. Results: -labs reviewed-PSA on 03/29/2024--2.25 ng/dL US renal/bladder-10/14/24--Normal kidneys. Significant postvoid residual. Urinary bladder diverticula. 07/29/24--Drew is a 69-year-old gentleman who states that he feels that he is not emptying his bladder well. Patient states he was prescribed Alfuzosin by his PCP for his Urinary Frequency and Incomplete Emptying, Patient states that Alfuzsoin has little effect he gets up numerous times during the night to urinate and feels that he does not empty his bladder enough. AUA symptom score 30/35. The patient states he has had progression of symptoms over the last 5 years he has been on the alfuzosin for about 4 months. I have discussed a trial of tamsulosin 0.4 mg in the evening which we can increase to b.i.d. pending symptom improvement. Discussed alternative treatment options include therapies to resect or laser prostate. We will check renal and bladder ultrasound. Follow-up in 3 months. Bladder scan PVR today is 237 mL. Urinalysis negative blood leukocytes trace. Review of chart-labs PSA-03/29/2024 equals 2.25 mg/dL. [facility] Medical History History of colon polyps Right leg weakness Right leg pain Right hip pain Laboratory exam ordered as part of routine general medical examination Screening for colon cancer Screening for prostate cancer Adult general medical exam Surgical History H/O colonoscopy History of tonsillectomy Family History Father Stomach cancer Social History Housing: House Are you a primary manager critical care to a significant other at home: No Do you presently have visiting nurse or other home services: No Alcohol intake: current Alcohol intake frequency: other Alcohol type: beer Comment: about 4 beers per year. Patient Tobacco Use Status: Current everyday Tobacco user Tobacco use type: Cigarette Cigarette Packs Per Day: 1 Years Smoked: 23 e-Cigarette/Vaping Use: Never Used Second Hand Smoke Exposure: No service: No Current occupational status: disabled Current occupational exposures/hazards: No Cognitive needs: No Hearing needs: No Vision needs: Yes Review of Systems Const All systems reviewed & are unremarkable except as noted in HPI and below Reports no additional complaints Eyes Reports no additional complaints ENT Reports no additional complaints Card Reports no additional complaints Resp Reports no additional complaints GI Reports no additional complaints Reports as per HPI Musc Reports no additional complaints Skin/Breast Reports system reviewed and no additional complaints, except as documented Neuro Reports no additional complaints Psych Reports no additional complaints Endo Reports no additional complaints Surendra/Lymph Reports no additional complaints Aller/Immun Reports no additional complaints Office Procedures Cystoscopy Consent Discussed risk and benefit or proposed procedure with the patient. Information consent for procedure given to the patient. Discussed technical aspects, risks, benefits and alternatives in full. Addressed all of the patient's questions and concerns regarding the procedure. The patient demonstrated knowledge and understanding. They wish to proceed with this procedure. Preparation The patient was prepped in the usual manner. A par[employer] ticket checker was present and in the room. Genitalia was prepped with betadine solution in a sterile manner. Lidocaine Jelly 2% was placed into the urethra and 16Fr flexible Olympus cystoscope was inserted into the meatus after adequate lubrication. Procedure Time out per protocol performed. The flexible cystoscope is passed transurethrally: The bladder was inspected in its entirety with utilization retroflexion displaying: Tumor(s): no suspicious bladder lesions visualized Trabeculation: Moderate with cellule changes, and diverticuli Mucosal Erthema: NA Orifices: normal shape and position Urethra: normal Cystoscopy findings today 01/30/25: Bilobar enlargement of the prostate, mild prominence of the median lobe, significant trabeculations, and small diverticulae observed, no suspicious bladder lesions visualized [id number] DISPOSABLE SCOPE URO-G FLEXIBLE SCOPE Procedure code (CPT) selection complete Office Meds lidocaine HCl 2 % mucosal jelly in applicator Performing Provider: Juarez Medrano MD [facility] Administered by: Jocelyn Powell RN on 01/30/25 10:30 Dose Route Admin Location Dispensed Lot Number Expiration Date NDC [employer] 10 mL intra-urethral 20 mL ciprofloxacin HCl 500 mg tablet Performing Provider: Juarez Medrano MD Performing Location: [facility] Administered by: Jocelyn Powell RN on 01/30/25 10:30 Dose Route Admin Location Dispensed Lot Number Expiration Date NDC [employer] 500 mg PO 1 tab Comments: Did not give pyridium due to allergic reaction alert Assessment & Plan Assessment & Plan (1) BPH loc w urin obs/LUTS: Code(s): N40.1 - Benign prostatic hyperplasia with lower urinary tract symptoms Category: Medical (2) Incomplete bladder emptying: Code(s): R33.9 - Retention of urine, unspecified Category: Medical (3) Bladder wall thickening: Code(s): N32.89 - Other specified disorders of bladder Category: Medical Plan Plan - Continue tamsulosin for management of BPH symptoms. - Discussed adding 5-alpha reductase inhibitor such as finasteride for dual therapy. - Discussed surgical options including green light laser therapy for prostate. Orders: Orders AMB Cystoscopy Today R35.0 - Frequency of micturition Medications: New finasteride (Proscar) 5 mg PO DAILY 90 tabs 3RF Patient Instructions: The patient had an opportunity to ask questions regarding treatment plan. The patient expressed understanding and agreement with the above treatment plan. The patient is aware they should contact our office by phone for worsening of their current condition or the appearance of new symptoms. Compliance is encouraged with any medications and followup testing that is ordered. It is a privilege to be allowed the opportunity to participate in the urologic care of your patient. If you have any questions or concerns regarding treatment for the above conditions please do not hesitate to contact me. The office telephone contact is [phone]. This note is constructed in part using voice recognition software. While every effort has been made to ensure accuracy jigger operator errors may have been included. Yours sincerely, Juarez Medrano MD Scribe Plan - Not visible on output: Patient was informed and verbally consented to the use of an ambient scribe for clinic note documentation during this visit. Coding Level of Care Code Est Pt Level 4 (58867) Diagnoses BPH loc w urin obs/LUTS N40.1 Incomplete bladder emptying R33.9 Bladder wall thickening N32.89 CPT Codes Cystoscopy - CPT: 78586-[id number] ([id number])
--- OUTSIDE RECORDS SUMMARY | 2025-01-30 11:02 | XMS_ITS ---
Author Name [facility] Organization Unknown Care Team Organization Name Specialty Phone Email Start Date End [facility] 06/29/2024
== END 2025-01-30 11:17 | disposition home or self-care (01) ==
LOC: HO.HUSH 10:20
PROVIDERS: PCP Family Medicine; Visit Provider Urology
DX: N40.1 Benign prostatic hyperplasia with lower urinary tract symptoms (principal); R33.9 Retention of urine, unspecified; N32.89 Other specified disorders of bladder; R35.0 Frequency of micturition; Z13.9 Encounter for screening, unspecified
CPT/HCPCS: 52000; 99213

== ENCOUNTER → 2025-01-30 10:20 | Outpatient (BNVA) | payer MEDICARE, SELFPAY | PROVIDERS: PCP Family Medicine; Visit Provider Urology | DX: N40.1 Benign prostatic hyperplasia with lower urinary tract symptoms (principal); R33.9 Retention of urine, unspecified; N32.89 Other specified disorders of bladder | CPT/HCPCS: 52000; 81003; 99212 ==

== ENCOUNTER 2025-03-20 11:31 | Outpatient (AMB) | payer MEDICARE, SELFPAY ==
[2025-03-20 11:55] VITALS: BP 161/74; PULSE 78; RESP 18; O2SAT 98
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
== END 2025-03-20 12:11 | disposition home or self-care (01) ==
LOC: HO.PMC 11:32
PROVIDERS: PCP Family Medicine; Visit Provider Anesthesiology
DX: M48.00 Spinal stenosis, site unspecified (principal); M47.816 Spondylosis without myelopathy or radiculopathy, lumbar region; M51.369 Other intervertebral disc degeneration, lumbar region without mention of lumbar back pain or lower extremity pain; M70.61 Trochanteric bursitis, right hip; G89.4 Chronic pain syndrome; M79.18 Myalgia, other site
CPT/HCPCS: 99213

== ENCOUNTER → 2025-03-20 11:31 | Outpatient (BNVA) | payer MEDICARE, SELFPAY | PROVIDERS: PCP Family Medicine; Visit Provider Anesthesiology | DX: M47.816 Spondylosis without myelopathy or radiculopathy, lumbar region (principal); M48.00 Spinal stenosis, site unspecified; M51.369 Other intervertebral disc degeneration, lumbar region without mention of lumbar back pain or lower extremity pain; M70.61 Trochanteric bursitis, right hip; G89.4 Chronic pain syndrome; M79.18 Myalgia, other site | CPT/HCPCS: 99212 ==

== ENCOUNTER 2025-05-21 11:05 | Outpatient (AMB) | payer MEDICARE, SELFPAY ==
[2025-05-21 11:23] VITALS: BP 143/75; PULSE 82; RESP 16; O2SAT 96; BMI 26.5
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
== END 2025-05-21 11:50 | disposition home or self-care (01) ==
LOC: HO.PMC 11:06
PROVIDERS: PCP Family Medicine; Visit Provider Anesthesiology
DX: M70.61 Trochanteric bursitis, right hip (principal); M47.816 Spondylosis without myelopathy or radiculopathy, lumbar region; M51.369 Other intervertebral disc degeneration, lumbar region without mention of lumbar back pain or lower extremity pain; G89.4 Chronic pain syndrome; M48.00 Spinal stenosis, site unspecified; M79.18 Myalgia, other site
CPT/HCPCS: 99213

== ENCOUNTER → 2025-05-21 11:05 | Outpatient (BNVA) | payer MEDICARE, SELFPAY | PROVIDERS: PCP Family Medicine; Visit Provider Anesthesiology | DX: G89.4 Chronic pain syndrome (principal); M47.816 Spondylosis without myelopathy or radiculopathy, lumbar region; M51.369 Other intervertebral disc degeneration, lumbar region without mention of lumbar back pain or lower extremity pain; M70.61 Trochanteric bursitis, right hip; M79.18 Myalgia, other site | CPT/HCPCS: 99212 ==

== ENCOUNTER 2025-07-15 07:54 | Outpatient (REF) | payer MEDICARE, SELFPAY ==
[2025-07-15 11:17] LABS: MANUAL DIFF FLAG NO
[2025-07-15 11:21] LABS: Appearance Urine Clear; Glucose Urine UA Negative (Negative); PH 6.5 (5.0-9.0); Specific Gravity - Urine 1.020 (1.005-1.025)
[2025-07-15 11:35] LABS: Hematocrit 52.0 % (42.0-52.0); Hemoglobin 16.7 g/dl (14.0-18.0); Imm Gran Abs Auto 0.03 X10*3/uL (0.00-0.03); Imm Gran Pct Auto 0.3 % (0.0-0.4); Lymphocytes Absolute Auto 2.7 X10*3/uL (1.2-4.9); Mean Corpuscular HGB Conc 32.1 g/dl (31.0-36.0); Mean Corpuscular Hemoglobin 30.8 pg (27.0-33.0); Mean Corpuscular Volume 95.8 fL (80.0-98.0); NRBC Abs Auto 0.000 X10*3/uL (0.0-0.012); NRBC Pct Auto 0.0 /100WBC (0.0-0.2); Platelet Count 224 X10*3/uL (160-400); Red Blood Count 5.43 X10*6/uL (4.60-5.80); White Blood Count 9.1 X10*3/uL (4.8-10.8)
[2025-07-15 11:57] LABS: Alanine Aminotransferase 22 U/L (0-40); Albumin Level 4.3 g/dL (3.5-5.0); Alkaline Phosphatase 75 U/L (39-117); Anion Gap 12 (12-20); Aspartate Amino Transferase 32 U/L (5-37); Blood Urea Nitrogen 10 mg/dL (9-16); Calcium 9.6 mg/dL (8.4-10.2); Carbon Dioxide 29 mmol/L (22-29); Chloride 109 mmol/L (96-108); Cholesterol 209 mg/dL (<200); Estimated Glomerular Filt Rate > 60; HDL Cholesterol 36 mg/dL (>40); Potassium 4.7 mmol/L (3.3-5.1); Sodium 145 mmol/L (135-145); Total Protein 6.9 g/dL (6.5-8.0); Triglycerides 267 mg/dL (<150)
[2025-07-15 12:31] LABS: Microalbum/Creatinine Ratio Ur 3.6 ug/mg cr (<30)
== END 2025-07-15 07:55 | disposition home or self-care (01) ==
LOC: HO.WFDLDS 07:54
PROVIDERS: Visit Provider Family Medicine
DX: Z00.00 Encounter for general adult medical examination without abnormal findings (principal); Z12.5 Encounter for screening for malignant neoplasm of prostate; I10 Essential (primary) hypertension
CPT/HCPCS: 36415; 80053; 80061; 81003; 82043; 82570; 84153; 84443; 85025

== ENCOUNTER 2025-07-18 11:33 | Outpatient (AMB) | payer MEDICARE, SELFPAY ==
--- NOTE | 2025-07-18 11:48 | MHC.PC.OV ---
Vital Signs 07/18/25 12:02 Height 5 ft 11 in Weight 191 lb BMI 26.6 BP 128/62 Blood Pressure Location Rt brachial Position Sitting Respiration 17 Pulse 84 Pulse Source Pulse Oximeter Temp 97.4 F Temp Source Temporal Artery Scan Intake Visit Reasons: CPE with f/u labs & health maint. - see comments Intake Note: Drew presents in the office today for his annual physical and a follow up to his lab results. Bed Placement Coordinator Required: No Allergies acetaminophen (From Tylenol-Codeine #3) Allergy (Severe, Verified 07/18/25 11:59) Anaphylaxis codeine (From Tylenol-Codeine #3) Allergy (Severe, Verified 07/18/25 11:59) Anaphylaxis Codeine Sulfate Allergy (Unknown, Uncoded 07/18/25 11:59) tongue swelling Medication List - Last Reconciled 07/18/25 by Drew Guzman MD diclofenac sodium 1% (Motrin Arthritis Pain) 4 grams topical ONCE 30 days finasteride (Proscar) 5 mg PO DAILY ibuprofen 400 mg PO Q8H PRN tamsulosin (Flomax) 0.4 mg PO BID Tobacco use date assessed: 07/18/25 Fall risk assessment: No Falls in past year Last assessed Fall Risk: 07/18/25 Dental Screening Dental Screen Date: 07/18/25 Did you have a dental visit in the last 12 months?: No Did you have a dental problem in the last 6 months where you did not have access to dental care?: No Was dental information given to patient?: Patient declined HPI CPE with f/u labs & health maint. - see comments HPI Details 70 y/o male presents for an extended exam with f/u labs and health maint. Labs drawn 07/15/25. Reviewed labs with pt. Elevated fasting glucose 106. Triglycerides 267. TC 209. LDL 120. HDL low at 36. PSA 1.59. TSH 0.73. Hx of tubular adenoma of colon. Follows up with SERA, Kenzie Ku. A1c today 4.9%. [facility] Medical History (Updated 07/18/25 @ 12:17 by Bandar Pedro) Screening for prostate cancer Screening for colon cancer History of colon polyps Right leg weakness Right leg pain Right hip pain Laboratory exam ordered as part of routine general medical examination Adult general medical exam Surgical History H/O colonoscopy History of tonsillectomy Family History Father Stomach cancer Social History (Updated 07/18/25 @ 12:01 by Dominique Ruiz CMA) Housing: House Are you a primary behavioral health care coordinator to a significant other at home: No Do you presently have visiting nurse or other home services: No Alcohol intake: current Alcohol intake frequency: other Alcohol type: beer Comment: about 4 beers per year. Patient Tobacco Use Status: Current everyday Tobacco user Tobacco use type: Cigarette Cigarette Packs Per Day: 1 Years Smoked: 23 e-Cigarette/Vaping Use: Never Used Second Hand Smoke Exposure: No service: No Current occupational status: disabled Current occupational exposures/hazards: No Cognitive needs: No Hearing needs: No Vision needs: Yes Questionnaire PHQ-9 Over the last 2 weeks, how often have you been bothered by any of the following problems? 1. Little interest or pleasure in doing things: not at all 2. Feeling down, depressed, or hopeless: not at all 3. Trouble falling or staying asleep, or sleeping too much: not at all 4. Feeling tired or having little energy: not at all 5. Poor appetite or overeating: not at all 6. Feeling bad about yourself - or that you are a failure or have let yourself or your family down: not at all 7. Trouble concentrating on things, such as reading the newspaper or watching television: not at all 8. Moving or speaking so slowly that other people could have noticed. Or the opposite - being so fidgety or restless that you have been moving around a lot more than usual: not at all 9. Thoughts that you would be better off or of hurting yourself in some way: not at all Total score: 0 Depression Screening Interpretation: Negative Depression Screening Done: Yes 19274 - PHQ-9 Billing: Yes Source: Developed by Drs. Salbador Haley, Irene Ronquillo, Chavo Rod and colleagues, with an educational riya from [employer]. Thrive Questionnaire Date Thrive assessed: 07/18/25 I am a: Patient What is your living situation today?: I have a steady place to live Within the past 12 months, did the food you bought not last and you didn't have the money to get more?: Never true Within the past 12 months, did you worry whether your food would run out before you got money to buy more?: Never true Do you have trouble paying for medicines?: No Do you have trouble getting transportation to medical appointments?: No Do you have trouble paying your heating and electricity bill?: I choose not to answer this question Do you have trouble taking care of your child, family member or friend?: I choose not to answer this question Do you have trouble with day-to-day activities such as bathing, preparing meals, shopping, managing finances, etc.?: No Are you currently unemployed and looking for a job?: No Are you interested in more education?: No Currently or been in a relationship where the following occur: No concerns reported THRIVE Score: 0 AUDIT C Alcohol Use Questionnaire (AUDIT-C) 1. How often do you have a drink containing alcohol?: Monthly or less (2-3 beers YEAR) 2. How many drinks containing alcohol do you have on a typical day when you are drinking?: 1 or 2 3. How often do you have six or more drinks on one occasion?: Never Total Score: 1 KINA-7 AMB Questionnaire KINA-7 Date KINA - 7 assessed: 07/18/25 Feeling nervous, anxious, or on edge: 0 = Not at all Not being able to stop or control worryin = Not at all Worrying too much about different things: 0 = Not at all Trouble relaxin = Not at all Being so restless that it is hard to sit still: 0 = Not at all Becoming easily annoyed or irritable: 0 = Not at all Feeling afraid as if something awful might happen: 0 = Not at all Total KINA-7 score (0-4 normal; 5-9 mild; 10-14 moderate; 15-21 severe): 0 Source: Developed by Drs. Salbador Haley, Irene Ronquillo, Chavo Rod and colleagues, with an educational riya from [employer]. KINA-7 Assessment Billing KINA-7 Assessment Tool: KINA-7 Assessment 93802 Review of Systems Const Denies chills, Denies fatigue, Denies fever(s), Denies headache(s) and Denies weakness Eyes Denies change in vision ENT Denies dizziness, Denies headache(s), Denies hearing loss, Denies nasal congestion, Denies sinus pain, Denies sinus pressure and Denies sore throat Card Denies chest pain, Denies lightheadedness, Denies dyspnea and Denies other (palpitations) Resp Denies cough, Denies dyspnea and Denies wheezing GI Denies abdominal pain, Denies melena, Denies hematochezia, Denies change in bowel habits, Denies dyspepsia and Denies nausea Denies hematuria and Denies dysuria Musc Denies abnormal gait, Denies myalgias, Denies arthralgias, Denies numbness and Denies tingling Skin/Breast Denies rash, Denies unusual bruising and Denies wounds Neuro Denies abnormal gait, Denies dizziness, Denies headache(s), Denies memory loss, Denies numbness, Denies Sensory deficit (Neuro), Denies tingling and Denies weakness Psych Denies anxiety, Denies depression and Denies memory loss Endo Denies cold intolerance, Denies fatigue, Denies heat intolerance, Denies polydipsia and Denies polyuria Surendra/Lymph Denies easy bleeding and Denies easy bruising Aller/Immun Denies wheezing Physical exam (Primary Care) Vital Signs: Last Vital Signs Temp 97.4 F 07/18/25 12:02 Pulse 84 07/18/25 12:02 Resp 17 07/18/25 12:02 BP 128/62 07/18/25 12:02 BMI result Body Mass Index 26.6 Tobacco/Smoking Status: Tobacco use Status Tobacco use date assessed 07/18/25 07/18/25 12:07 Patient Tobacco Use Status Current everyday Tobacco 07/18/25 12:01 Tobacco use type Cigarette 07/18/25 12:01 e-Cigarette/Vaping Use Never Used 07/18/25 12:01 PHQ-9: PHQ-9 Score PHQ-9: Total score 0 07/18/25 12:18 Depression Screening Interpretation: Negative Thrive Assessment: Date of Thrive Assessment Date Thrive assessed 07/18/25 07/18/25 12:08 Currently or been in a relationship where the following occur: No concerns reported Const General: no acute distress, well developed, alert and awake Nutritional Appearance: well nourished Orientation/consciousness: patient oriented x3 HENMT Head: Yes normocephalic and Yes atraumatic Ears: hearing grossly normal bilaterally and TM's normal bilaterally General nose exam: Normal external nose present and Normal nares present Mouth: Normal oral and palatal mucosa present and moist mucous membranes Teeth and gingiva: dentition normal Throat: Yes posterior oropharynx normal Eyes General: appearance normal, both eyes and all related structures Pupils: Equal, round and reactive pupils present and Pupil accommodation reflex normal EOM: EOMs intact bilaterally Neck Neck: Yes normal visual inspection, Yes no lymphadenopathy and Yes trachea midline Thyroid: Thyroid normal Carotids: no bruits Lymphatic: no lymphadenopathy noted Chest Chest palpation & inspection: normal inspection of the chest Resp Effort & Inspection: normal respiratory effort Auscultation: clear to auscultation bilaterally Cardio Rate: regular rate Rhythm: regular rhythm Heart sounds: S1 normal heart sound present, S2 normal heart sound present, no gallops, no murmurs and no rubs Bruits: no abdominal aortic bruits and no carotid bruits GI Palpation (GI): No Abdominal aortic bruit present, Soft to palpation, nontender, No hepatosplenomegaly present and No Rebound tenderness present Auscultation: normal bowel sounds General: Yes no CVA tenderness Back/Spine/Pelvis Back: no CVA tenderness Cervical Spine: cervical ROM normal and No Cervical spine tenderness Thoracic/Lumbar Spine: thoraco-lumbar ROM normal, No pain with thoraco-lumbar ROM, No thoracic spinal tenderness and No lumbar spinal tenderness Skin Lesions: no lesions Rashes: no rashes Trauma: no lacerations or abrasions Wounds: no wounds Nails: normal Neuro General: patient oriented x3 Cranial nerves: Yes Equal, round and reactive pupils present Cognition (Neuro): normal cognition Gait exam (Neuro): Normal gait present Motor exam (neuro): 5/5 motor strength present throughout Sensory Exam: No Sensory deficit (Neuro) Deep tendon reflexes (DTR's): Right patellar reflex intensity grade: 2+ and Left patellar reflex intensity grade: 2+ Extrem General: Yes normal to inspection and No edema Psych Appearance: grossly normal Affect: normal affect Attitude: cooperative Thought process: Normal thought process present Results AMB Hemoglobin A1c AMB Hemoglobin A1c 4.9 % Last Edit by Dominique Ruiz CMA on 07/18/25 12:22 Results Reviewed Results Reviewed: Laboratory Last Values Hgb A1c (Clinic) 4.9 % (4.0-6.0) 07/18/25 12:13 Coding Level of Care Code Est Pt Level 4 (98344) Diagnoses Elevated fasting blood sugar R73.01 Elevated LDL cholesterol level E78.00 Screening for colon cancer Z12.11 Tubular adenoma of colon D12.6 Screening for prostate cancer Z12.5 Additional Codes KINA-7 Assessment Billing - KINA-7 Assessment Tool: KINA-7 Assessment 07977 ([id number]) PHQ-9 - 27449 - PHQ-9 Billing: Yes ([id number]) Assessment & Plan Assessment & Plan (1) Elevated fasting blood sugar: Code(s): R73.01 - Impaired fasting glucose Category: Medical Plan: Ongoing elevated fasting blood sugars but A1c is still in normal range. Likely some insulin resistance so I recommended he work on a diet lower in sugars and starches Will continue to monitor (2) Elevated LDL cholesterol level: Code(s): E78.00 - Pure hypercholesterolemia, unspecified Category: Medical Plan: LDL cholesterol is too high and has climbed to 120 Recommended a diet lower in saturated fats and cholesterol Discussed medication but patient would like to continue to work at lifestyle changes. Will recheck at next visit and we discussed that if he is unable to make significant improvement, we should consider medication. (3) Screening for colon cancer: Code(s): Z12.11 - Encounter for screening for malignant neoplasm of colon Category: Medical Plan: Patient had a colonoscopy in spring 2024. Recommended follow-up in 3 years. Up-to-date (4) Tubular adenoma of colon: Comment: 10/22/2024= 110 mm sessile TA and 1 hyperplastic polyp repeat in 3 years Code(s): D12.6 - Benign neoplasm of colon, unspecified Category: Medical Plan: As above (5) Screening for prostate cancer: Code(s): Z12.5 - Encounter for screening for malignant neoplasm of prostate Category: Medical Plan: PSA was within normal range. Patient does have significant urinary hesitancy and frequency. Working with Urology and has follow-up Orders: Orders AMB Hemoglobin A1c Today R73.01 - Impaired fasting glucose Lipid Panel Today E78.00 - Pure hypercholesterolemia, unspecified, Z00.00 - Encounter for general adult medical examination without abnormal findings Hemoglobin A1c Today R73.01 - Impaired fasting glucose Comprehensive [place]. Panel Fast Today R73.01 - Impaired fasting glucose, Z00.00 - Encounter for general adult medical examination without abnormal findings
[2025-07-18 12:02] VITALS: BP 128/62; PULSE 84; RESP 17; TEMP 36.3; BMI 26.6
== END 2025-07-18 12:49 | disposition home or self-care (01) ==
LOC: HO.HMCFM 11:34
PROVIDERS: PCP Family Medicine; Visit Provider Family Medicine
DX: R73.01 Impaired fasting glucose (principal); E78.00 Pure hypercholesterolemia, unspecified; Z12.11 Encounter for screening for malignant neoplasm of colon; D12.6 Benign neoplasm of colon, unspecified; Z12.5 Encounter for screening for malignant neoplasm of prostate

== ENCOUNTER → 2025-07-18 11:33 | Outpatient (BNVA) | payer MEDICARE, SELFPAY | PROVIDERS: PCP Family Medicine; Visit Provider Family Medicine | DX: Z12.11 Encounter for screening for malignant neoplasm of colon (principal); Z12.5 Encounter for screening for malignant neoplasm of prostate; R73.01 Impaired fasting glucose; E78.00 Pure hypercholesterolemia, unspecified; D12.6 Benign neoplasm of colon, unspecified | CPT/HCPCS: 83036; 96127; 99212 ==